=== PATIENT | female | born 1940 | race Caucasian/White ===

== ENCOUNTER → 2016-04-11 | Outpatient (CLI) | payer OTHER ==
[~2016-04-11] MED LIST: ALEVE220 MG PO; ASPIRIN81 M1 PO; CALCIUM +D; GLUCOPHAGE500 MG PO; LISINOPRIL/HCTZ1 TA2 PO; LOVASTATIN; LOVASTATIN20 MG PO; OSCAL,OYSTER S500 MG PO; VICODIN 5/500 505 MG PO; ZOLOFT50 MG PO; [UNRECOGNIZED DRUG - OTHER]
== END | disposition home or self-care (01) ==
LOC: RAD 13:15
DX: M16.0 Bilateral primary osteoarthritis of hip (principal); M25.551 Pain in right hip; M25.552 Pain in left hip

== ENCOUNTER → 2016-09-16 | Outpatient (CLI) | payer OTHER ==
[2016-09-16 11:15] LABS: ALBUMIN 3.5 gm/dl (3.1-4.5); BUN 23 mg/dl (7-24); CARBON DIOXIDE 27 mmol/L (21-32); CHLORIDE 106 mmol/L (98-107); CHOLESTEROL 172 mg/dL (<200); EST GLOM FILT AFRICAN AMERICAN > 60 ml/min; GLUCOSE 95 mg/dL (65-99); POTASSIUM 4.8 mmol/L (3.5-5.1); SGOT/AST 26 IU/L (3-35); SGPT/ALT 29 U/L (12-78); SODIUM 142 mmol/L (136-145); TRIGLYCERIDES 177 mg/dl (<150); VLDL CHOLESTEROL 35 mg/dL (6-40)
[2016-09-16 11:17] LABS: ALKALINE PHOSPHATASE 100 U/L (45-117); BILIRUBIN, TOTAL 0.3 mg/dl (0.2-1.0); CPK 70 U/L (26-192); HDL CHOLESTEROL 44 mg/dl (40-60); LDL CHOLESTEROL 93 mg/dL (9-159); TOTAL PROTEIN 7.5 gm/dL (6.4-8.2)
== END | disposition home or self-care (01) ==
LOC: LAB 10:26
PROVIDERS: Family Medicine
DX: E78.00 Pure hypercholesterolemia, unspecified (principal); I10 Essential (primary) hypertension

== ENCOUNTER → 2016-09-19 | Outpatient (CLI) | payer OTHER | END | disposition home or self-care (01) | LOC: RAD 12:13 | DX: J44.9 Chronic obstructive pulmonary disease, unspecified (principal); Z87.891 Personal history of nicotine dependence ==

== ENCOUNTER → 2016-10-22 | Outpatient (CLI) | payer OTHER ==
[~2016-10-22] MED LIST changes: +HYDROCODON-ACE1 EACH PO
--- NOTE | ~2016-10-22 | ST ---
[place], [place] EXERCISE STRESS TEST REPORT NAME: ROCIO AGUILERA UNIT #: [id number] ROOM: DOCTOR: RYANNE SALDANA MD BIRTHDATE: [birth year] DOS: 10/22/2016 Lexiscan portion of the Lexiscan Cardiolite. Baseline cardiogram, sinus rhythm with nonspecific ST-T changes, 0.4 mg of Lexiscan, duration of 10 seconds. With Lexiscan, no new EKG changes. No chest discomfort. Blood pressure and heart rate response was normal. Nuclear images will be reported separately. RYANNE SALDANA MD CM:STRESS:EXERCISE STRESS TEST REPORT [id number] RYANNE SALDANA MD
== END | disposition home or self-care (01) ==
LOC: CARD 02:11
DX: I20.1 Angina pectoris with documented spasm (principal); R53.81 Other malaise; R07.2 Precordial pain

== ENCOUNTER → 2017-01-01 | Outpatient (CLI) | payer OTHER | END | disposition home or self-care (01) | LOC: RAD 13:27 | DX: J44.9 Chronic obstructive pulmonary disease, unspecified (principal) ==

== ENCOUNTER → 2017-02-19 | Outpatient (CLI) | payer OTHER ==
[2017-02-19 09:42] LABS: HEMATOCRIT 40.4 % (37.0-47.0); HEMOGLOBIN 12.9 g/dl (12.0-16.0); MEAN CELL VOLUME 95.1 fl (81.0-99.0); MEAN CORPUSCULAR HGB 30.4 pg (27.0-31.0); MEAN CORPUSCULAR HGB CONC 31.9 g/dl (33.0-37.0); MEAN PLATELET VOLUME 11.2 fl (9.6-12.3); RED BLOOD COUNT 4.25 10*6/uL (4.10-5.10); RED CELL DISTRI WIDTH 14.5 % (0-14.5); WHITE BLOOD COUNT 8.5 10*3/uL (4.8-10.8)
[2017-02-19 10:11] LABS: ALBUMIN 3.4 gm/dl (3.1-4.5); ALKALINE PHOSPHATASE 105 U/L (45-117); BUN 18 mg/dl (7-24); CHLORIDE 109 mmol/L (98-107); CHOLESTEROL 148 mg/dL (<200); CPK 64 U/L (26-192); CREATININE 0.78 mg/dL (0.55-1.02); HDL CHOLESTEROL 37 mg/dl (40-60); LDL CHOLESTEROL 81 mg/dL (9-159); POTASSIUM 4.3 mmol/L (3.5-5.1); SGOT/AST 20 IU/L (3-35); SGPT/ALT 21 U/L (12-78); SODIUM 143 mmol/L (136-145); TRIGLYCERIDES 151 mg/dl (<150); VLDL CHOLESTEROL 30 mg/dL (6-40)
== END | disposition home or self-care (01) ==
LOC: LAB 09:28
PROVIDERS: Family Medicine
DX: E78.00 Pure hypercholesterolemia, unspecified (principal); J44.9 Chronic obstructive pulmonary disease, unspecified; I10 Essential (primary) hypertension; F41.1 Generalized anxiety disorder; E74.00 Glycogen storage disease, unspecified; E55.9 Vitamin D deficiency, unspecified

== ENCOUNTER → 2017-06-12 | Outpatient (CLI) | payer OTHER ==
[2017-06-12 12:04] LABS: HEMATOCRIT 42.8 % (37.0-47.0); HEMOGLOBIN 14.1 g/dl (12.0-16.0); MEAN CELL VOLUME 94.9 fl (81.0-99.0); MEAN CORPUSCULAR HGB 31.3 pg (27.0-31.0); MEAN CORPUSCULAR HGB CONC 32.9 g/dl (33.0-37.0); RED BLOOD COUNT 4.51 10*6/uL (4.10-5.10); RED CELL DISTRI WIDTH 14.4 % (0-14.5)
[2017-06-12 12:34] LABS: ALBUMIN 3.8 gm/dl (3.1-4.5); ALKALINE PHOSPHATASE 105 U/L (45-117); BUN 20 mg/dl (7-24); CHLORIDE 108 mmol/L (98-107); CHOLESTEROL 162 mg/dL (<200); CPK 55 U/L (26-192); CREATININE 0.81 mg/dL (0.55-1.02); HDL CHOLESTEROL 39 mg/dl (40-60); LDL CHOLESTEROL 92 mg/dL (9-159); POTASSIUM 4.5 mmol/L (3.5-5.1); SGOT/AST 22 IU/L (3-35); SGPT/ALT 24 U/L (12-78); SODIUM 142 mmol/L (136-145); TOTAL PROTEIN 7.6 gm/dL (6.4-8.2); TRIGLYCERIDES 153 mg/dl (<150); VLDL CHOLESTEROL 31 mg/dL (6-40)
== END | disposition home or self-care (01) ==
LOC: LAB 11:35
PROVIDERS: Family Medicine
DX: E78.00 Pure hypercholesterolemia, unspecified (principal); E55.9 Vitamin D deficiency, unspecified; J44.9 Chronic obstructive pulmonary disease, unspecified; I10 Essential (primary) hypertension

== ENCOUNTER → 2017-08-15 | Outpatient (CLI) | payer OTHER ==
[2017-08-15 11:48] LABS: ALBUMIN 3.7 gm/dl (3.1-4.5); ALKALINE PHOSPHATASE 95 U/L (45-117); BUN 26 mg/dl (7-24); CHLORIDE 110 mmol/L (98-107); CHOLESTEROL 149 mg/dL (<200); CPK 54 U/L (26-192); CREATININE 0.95 mg/dL (0.55-1.02); HDL CHOLESTEROL 34 mg/dl (40-60); LDL CHOLESTEROL 84 mg/dL (9-159); POTASSIUM 4.8 mmol/L (3.5-5.1); SGOT/AST 20 IU/L (3-35); SGPT/ALT 21 U/L (12-78); SODIUM 143 mmol/L (136-145); TOTAL PROTEIN 7.3 gm/dL (6.4-8.2); TRIGLYCERIDES 157 mg/dl (<150); VLDL CHOLESTEROL 31 mg/dL (6-40)
== END | disposition home or self-care (01) ==
LOC: LAB 10:40
PROVIDERS: Family Medicine
DX: E78.00 Pure hypercholesterolemia, unspecified (principal); I10 Essential (primary) hypertension; E55.9 Vitamin D deficiency, unspecified

== ENCOUNTER 2018-01-25 10:45 | Emergency (ER) | payer OTHER ==
[2018-01-25] MEDS ORDERED: VENTOLIN 02.5 MG/3 M INH (11:13)
[2018-01-25] MEDS ORDERED: LISINOPRIL40 MG PO (11:15)
[2018-01-25] MEDS ORDERED: IBUPROFEN IB200 M1 PO (11:15)
[2018-01-25] MEDS ORDERED: TOPROL XL25 MG PO (11:16)
[2018-01-25] MEDS ORDERED: VITAMIN D5000 UNIT PO (11:16)
[2018-01-25] MEDS ORDERED: POTASSIUM GLUCO99 MG PO (11:17)
[2018-01-25] MEDS ORDERED: PRESERVISION A1 EAC1 PO (11:17)
[2018-01-25 12:08] LABS: BASO # 0.1 10*3/uL (0.0-0.1); BASO % 0.5 % (0.0-1.0); EOS # 0.2 10*3/uL (0.0-0.4); EOS % 1.2 % (1.0-4.0); HEMATOCRIT 37.5 % (37.0-47.0); HEMOGLOBIN 12.7 g/dl (12.0-16.0); LYMPH # 2.4 10*3/uL (1.3-4.4); MEAN CELL VOLUME 96.9 fl (81.0-99.0); MEAN CORPUSCULAR HGB 32.8 pg (27.0-31.0); MEAN CORPUSCULAR HGB CONC 33.9 g/dl (33.0-37.0); MEAN PLATELET VOLUME 11.3 fl (9.6-12.3); MONO # 1.4 10*3/uL (0.1-1.0); MONO % 9.3 % (3.0-9.0); NEUT # 10.8 10*3/uL (2.3-7.9); NEUT % 72.8 % (47.0-73.0); PLATELET COUNT AUTOMATED 236 10*3/uL (130-400); RED BLOOD COUNT 3.87 10*6/uL (4.10-5.10); RED CELL DISTRI WIDTH 13.1 % (0-14.5); WHITE BLOOD COUNT 14.8 10*3/uL (4.8-10.8)
[2018-01-25 12:23] LABS: ALKALINE PHOSPHATASE 96 U/L (45-117); BUN 16 mg/dl (7-24); CHLORIDE 105 mmol/L (98-107); CREATININE 0.89 mg/dL (0.55-1.02); POTASSIUM 3.7 mmol/L (3.5-5.1); SGOT/AST 24 IU/L (3-35); SGPT/ALT 27 U/L (12-78); SODIUM 137 mmol/L (136-145); TOTAL PROTEIN 7.5 gm/dL (6.4-8.2)
[2018-01-25] MEDS ORDERED: AUGMENTIN 875875 MG PO (12:49)
[2018-01-25] MEDS ORDERED: PREDNISONE50 MG PO (12:49)
[2018-01-25 13:05] VITALS: BP 131/65
[2018-01-25] MEDS ORDERED: TESSALON PERLE100 M1 PO (13:11)
== END 2018-01-25 13:03 | disposition home or self-care (01) ==
LOC: ED 10:45
PROVIDERS: Nurse Practitioner Family
DX: J44.1 Chronic obstructive pulmonary disease with (acute) exacerbation (principal); Z87.891 Personal history of nicotine dependence; Z79.899 Other long term (current) drug therapy; Z79.82 Long term (current) use of aspirin

== ENCOUNTER 2018-02-24 11:06 | Inpatient (IN) | payer OTHER ==
[~2018-02-24] VITALS: Ht 152.4 cm; Wt 101.8 kg
--- NOTE | ~2018-02-24 | CON ---
[place], [place] REPORT OF CONSULTATION NAME: ROCIO AGUILERA UNIT #: [id number] ROOM: 521 DOCTOR: MARLENA DIMAS MD BIRTHDATE: [birth year] DOS: 02/27/2018 PULMONARY CONSULTATION, EVALUATION, AND MANAGEMENT CONSULTATION REQUESTED BY: Dr. Imani Magaña. REASON FOR CONSULTATION: To assess the patient for possible bronchoscopy because of nonresolving respiratory symptoms. HISTORY OF PRESENT ILLNESS: This is a 77-year-old white female patient who was admitted to the hospital under the care of Dr. Imani Magaña on 02/24/2018. The patient presented to the hospital, reported having symptoms of gradual increase of respiratory symptoms, coughing, chest congestion, and wheezing for the past 3 weeks or so. The symptoms noted worsening and not responding to the treatment. The patient has been admitted to the hospital for further medical management. The symptoms were noted significantly worsened 2-3 days prior to admission to the hospital. The patient stated that she has been noted with severe cough, which is nonresolving and unable to expectorate sputum, resulting in wheezing and shortness of breath. Denies symptoms of pain in the chest. Denies symptoms of hemoptysis. REVIEW OF SYSTEMS: CONSTITUTIONAL: Fatigue and tiredness reported. Denies symptoms of fever or chills. EYES: Denies burning, redness, or tenderness. EARS, NOSE, THROAT SYMPTOMS: Denies sore throat, hoarseness, otalgia, postnasal drainage, or epistaxis. CARDIOVASCULAR: Denies angina pain, edema, or pain of the lower extremities. GASTROINTESTINAL: Dysphagia, nausea, vomiting, diarrhea, abdominal pain, hematemesis, melena, or hematochezia. SKIN: Denies abnormal lesions or rashes. GENITOURINARY: No dysuria, suprapubic pain, or hematuria. MUSCULOSKELETAL: No acute joint pain, redness, or tenderness. CENTRAL NERVOUS SYSTEM: Denies dizziness, headache, diplopia, or syncopal episode. Remaining systems were reviewed, they were noted all negative. PAST MEDICAL HISTORY: Known with: 1. History of longstanding COPD. 2. Essential hypertension. 3. Obesity. 4. Type 2 diabetes mellitus. 5. Benign essential hypertension. SOCIAL HISTORY: The patient is a , lives at home. Denies history of alcohol use or any illicit drugs. She has 3 children. Chronic heavy tobacco use, started as a teenager, 1-1/2 pack cigarettes per day until approximately 2006. Denies any history of alcohol use or any illicit drugs. [place], [place] REPORT OF CONSULTATION NAME: ROCIO AGUILERA UNIT #: [id number] ROOM: 521 DOCTOR: SHASHI SERRANO MD,MARLENA BIRTHDATE: [birth year] FAMILY HISTORY: The patient was noted essentially noncontributory. HOME MEDICATIONS: Noted use of aspirin, vitamin D, lisinopril, hydrochlorothiazide, lovastatin, metoprolol, and potassium gluconate. ALLERGIES: The patient noted as no known drug allergies. CURRENT MEDICATIONS: Administered reviewed and noted use of hydrochlorothiazide, lisinopril, aspirin, metoprolol succinate, Solu-Medrol 30 mg q.8 hours, DuoNeb, Pulmicort Respules, Levaquin intravenously, Zithromax and others. PHYSICAL EXAMINATION: GENERAL: This is a 77-year-old white female who has been noted currently awake and alert, in no acute distress. Height of 5 feet, weight of 224 pounds, BMI 43.8. VITAL SIGNS: For the patient which are recorded shows a normal temperature, respiratory rate 20-22, heart rate 66-70, blood pressure 155/49-124/48. The pulse oxygen saturation on room air at rest was 92% saturation, on admission room air was 90%. HEENT: Bsld-xj-hjdugrco obese. Head was atraumatic. Eyes: No icterus. NECK: Supple. CARDIOVASCULAR: S1, S2 is audible. LUNGS: The patient noted to have diffuse reduction in breath sounds with expiratory wheezing without any crackles. ABDOMEN: Soft, nontender. Bowel sounds present with mild obesity. EXTREMITIES: Without edema, clubbing, or cyanosis. MUSCULOSKELETAL: No deformity. VISIBLE SKIN: No lesions or rashes. CENTRAL NERVOUS SYSTEM: Cranial nerves 2-12 intact. LABORATORY DATA: CBC on 02/24/2018, on admission WBC count 17.1, hemoglobin and hematocrit, platelet count were normal. PT/PTT on 02/24/2018 was normal. CMP on 02/24/2018, normal BUN and creatinine. The blood culture on 02/24/2018, no bacterial growth. Culture of the sputum on 02/25/2018, normal stephen as well. RADIOLOGY DATA: Reviewed. Chest x-ray that was done one view on the admission, noted with possible mass lesion, infiltration, and consolidation in the left lingula. It was also noted with finding of a granuloma of the left upper lobe. Chest x-ray was reviewed of 01/01/2018, it does not show any abnormal finding of the lingula with the chronic granuloma, two of those were noted in the left upper lobe. The CT scan of the chest was also done on 02/24/2018, which was reviewed, showed limited assessment of mediastinum; however, small lymphadenopathy was noted, most likely non-pathological. The area of consolidation, infiltration mass-like lesion noted involving the left lingula, correlating to the abnormal chest x-ray. Granuloma was noted in the left upper lobe, two of those were identified, 2 mm nodule noted in the subpleural area of the posterior subsegment of the right upper lobe. IMPRESSION: [place], [place] REPORT OF CONSULTATION NAME: ROCIO AGUILERA UNIT #: [id number] ROOM: 521 DO[facility] [birth year] 1. The patient will be currently admitted to the hospital with ongoing symptom for the past 3 weeks with acute exacerbation of chronic obstructive pulmonary disease, no response to treatment. 2. Possibility of endobronchial obstruction to be considered and excluded with current finding and possible consideration of malignant process involving the left lingula as additional assessment to be performed. 3. Nonresolving severe cough. 4. History of heavy nicotine use until 2010. 5. The patient with a jixq-vj-srfmyxbj obesity history as well. 6. History of essential hypertension was also known. 7. Granuloma of the left upper lobe. The patient has a benign process. 8. Solitary small nodule 2-3 mm in right upper lobe. PLAN OF MANAGEMENT: At this time, significance was unknown. Continue current dose of corticosteroids. Start the patient on Mucinex. The patient will definitely require endoscopy for inspection and bronchoscopy ____ malignant process ____ obstruction of the lingular subsegment and also to extract any mucous impaction in major airways. Bronchodilator to be continued. Other therapy, plan of management as well. Usual care, other supportive treatment to be continued as well. Additional treatment changes or recommendation will be done based on progression of her illness. The risk and benefits of bronchoscopy were discussed with the patient in detail for the patient. The patient was agreeable for the procedure and that will be performed on Friday morning, n.p.o., past midnight status will be achieved from Friday midnight. Other plan of therapy care as well. Supportive care, other treatment and therapies as well. Usual medical management and care as previously ordered. The finding needs to clear up with the patient's lack of obstruction and lingula, exclude malignancy with further short term future assessments. Discontinuation of the Rocephin. The patient noted to be on Levaquin, which could adequately cover the current acute pneumonia and bronchitis, which was present. The patient will be started on DVT prophylaxis with Lovenox. Thanks for allowing me to participate in the care of this patient. MARLENA DANIELLE MD CM:CONSTR:REPORT OF CONSULTATION 1336 02/28/18 0307 interface
--- NOTE | ~2018-02-24 | WRIGHTHP ---
[place], [place] PATIENT HISTORY AND PHYSICAL EXAM NAME: ROCIO AGUILERA UNIT #: [id number] ROOM: 521 DOCTOR: FRANCISCO SMITH MD BIRTHDATE: [birth year] DOS: HISTORY OF PRESENT ILLNESS: This patient is 77 years old. The patient comes in with complaints of increasing difficulty breathing for the last 3-4 days. She also has had a cough, it was mostly dry and she is unable to bring up any sputum. She denies having any chest pains or palpitations. Does not have any fever or chills. Does not have any abdominal pain, nausea, any emesis. PAST MEDICAL HISTORY: Significant for: 1. COPD with last hospitalization in 09/2011. 2. Benign hypertension. 3. Chronic obstructive pulmonary disease. 4. Morbid obesity. 5. Type 2 diabetes mellitus. MEDICATIONS: Medications that she is on are aspirin 81 mg daily, vitamin D2 5000 units daily, lisinopril 40 daily, hydrochlorothiazide 25 daily, lovastatin 20 daily, metoprolol XL 25 b.i.d., potassium gluconate 99 mg daily. SOCIAL HISTORY: Nonsmoker. Does not use any alcohol. She lives at home, alone. PHYSICAL EXAMINATION: GENERAL: She is awake and alert and oriented, in moderate respiratory distress. VITAL SIGNS: Graphic trend shows a pressure of 132/70, pulse of 76, respirations 14, afebrile. LUNGS: Diminished breath sounds, a few scattered wheezes bilaterally. HEART: Regular, tachycardic. ABDOMEN: Obese, soft. EXTREMITIES: Without any edema. ASSESSMENT AND PLAN: 1. Acute exacerbation of chronic obstructive pulmonary disease. The patient is placed on IV steroids. CT scan of the chest is showing a lingular pneumonia. The patient is placed on IV antibiotics. Sputum cultures will be sent. 2. Acute respiratory failure on admission. We will do exercise oximetry before the patient is discharged. 3. Benign hypertension. Continue home medications. 4. Primary insomnia. The patient requested a sleeping pill. Ambien was given. [place], [place] PATIENT HISTORY AND PHYSICAL EXAM NAME: ROCIO AGUILERA UNIT #: [id number] ROOM: 521 DOCTOR: FRANCISCO SMITH MD BIRTHDATE: [birth year] FRANCISCO SMITH MD CM:SHARMAINE:PATIENT HISTORY AND PHYSICAL EXAMINATION 5 7 FRANCISCO SMITH MD 02/25/18926 interface
--- NOTE | ~2018-02-24 | PR ---
[place], [place] PROGRESS NOTE NAME: ROCIO AGUILERA UNIT #: [id number] ROOM: 521 DOCTOR: FRANCISCO SMITH MD BIRTHDATE: [birth year] DOS: SUBJECTIVE: The patient is doing well without any new complaints, but it appears to be quite short of breath on any kind of activity. OBJECTIVE: VITAL SIGNS: Blood pressure is 150/66, pulse of 55, respirations 20, temperature 97.4. LUNGS: Diminished breath sounds. HEART: Regular. ABDOMEN: Obese, soft. EXTREMITIES: Without any edema. ASSESSMENT AND PLAN: 1. Acute exacerbation of chronic obstructive pulmonary disease, continued mild bronchospasm and inability to cough. She is on maximal treatment plan. 2. Lingular pneumonia. Awaiting bronchoscopy. 3. Elevated white cell count, most likely from steroid effect. 4. Benign hypertension. This could be steroid effect causing pressures to go up. She is already on lisinopril and hydrochlorothiazide, which I will continue and continue to monitoring the blood pressures. FRANCISCO SMITH MD CM:PNTRANS [id number] FRANCISCO SMITH MD 02/28/18 1449 interface
--- NOTE | ~2018-02-24 | PR ---
[place], [place] PROGRESS NOTE NAME: ROCIO AGUILERA UNIT #: [id number] ROOM: 521 DOCTOR: FRANCISCO SMITH MD BIRTHDATE: [birth year] DOS: 03/04/2018 SUBJECTIVE: The patient is not having any complaints. She feels much better. OBJECTIVE: VITAL SIGNS: Blood pressure is 142/68, pulse of 64, respirations 18, temperature 97.8. LUNGS: Clear. HEART: Regular, heart rate in the low 50s. ABDOMEN: Obese, soft. EXTREMITIES: Without any edema. LABORATORY DATA: White cell count is 13.0, most likely steroid effect. Final cultures of the bronch specimen showed no bacterial growth. ASSESSMENT AND PLAN: 1. Lingular pneumonia, status post bronchoscopy with negative cultures. No malignancy was seen. 2. Chronic obstructive pulmonary disease with acute exacerbation, improved bronchospasm. 3. The plan is to discharge the patient to home today. FRANCISCO SMITH MD CM:PNTRANS [id number] FRANCISCO SMITH MD 03/04/18 1030 interface
--- NOTE | ~2018-02-24 | PR ---
[place], [place] PROGRESS NOTE NAME: ROCIO AGUILERA UNIT #: [id number] ROOM: 521 DOCTOR: SHASHI SERRANO MD,MARLENA BIRTHDATE: [birth year] DOS: 03/01/2018 SUBJECTIVE: The patient was still noted with symptoms of cough, remains unchanged. Denies symptoms of chest pain, hemoptysis. The patient does have symptoms of shortness breath with exertion, but not reported at rest with the wheezing has been reported intermittently at times. OBJECTIVE: VITAL SIGNS: For the patient which has been recorded showed the temperature noted normal, respiratory rate 18, heart rate 58, blood pressure 142/58. Pulse oxygen saturation on room air 95% saturation. HEAD, EYES, EARS, NOSE, AND THROAT: Examination shows head was atraumatic. Eyes nonicterus. NECK: Supple. CARDIOVASCULAR SYSTEM: S1, S2 is audible. LUNGS: Noted without any wheezing or crackles. ABDOMEN: Soft, nontender. Bowel sounds present. EXTREMITIES: No edema. IMPRESSION: Acute exacerbation of chronic obstructive pulmonary disease, with lingula rule out endobronchial obstruction. Mucous impaction major airway with a cough. PLAN OF MANAGEMENT: The patient already made n.p.o. ____ bronchoscopy planned to be done tomorrow morning. In the meantime, continue current medical management. The patient with use of the bronchodilators, oxygen supplementation, high dose of Mucinex and corticosteroids. MARLENA DANIELLE MD CM:PNTRANS 1230 15 MARLENA SERRANO MD 03/01/18 1716 interface
--- NOTE | ~2018-02-24 | PR ---
[place], [place] PROGRESS NOTE NAME: ROCIO AGUILERA UNIT #: [id number] ROOM: 521 DOCTOR: SHASHI SERRANO MD,MARLENA BIRTHDATE: [birth year] DOS: 02/28/2018 SUBJECTIVE: The patient was noted similar symptoms. The patient is coughing with minimal sputum expectoration excessive coughing remains with wheezing at times. Shortness of breath occurs with exertion. The symptoms of chest pain or hemoptysis. OBJECTIVE: VITAL SIGNS: For the patient which were recorded showed normal temperature, respiratory rate 20, heart rate 55, blood pressure 150/66. The pulse oxygen saturation was recorded at room air 96% saturation. HEENT: No acute change. CARDIOVASCULAR: S1, S2 audible. LUNGS: The patient decreased breath sounds, expiratory wheezing bilaterally. ABDOMEN: Soft, nontender, bowel sounds present. EXTREMITIES: No acute edema. LABORATORY DATA: The patient's CBC this morning: WBC count 15.1, remaining CBC was normal. IMPRESSION: The patient with acute exacerbation of chronic obstructive pulmonary disease, acute bronchitis, endobronchial obstruction to be excluded. The patient with atelectasis of the left lingula partially was also noted. PLAN OF CARE: Continuation of the current plan of management high dose of Mucinex, bronchodilators and antibiotics and corticosteroids. The bronchoscopy planned for the patient to be done on Friday morning. MARLENA DANIELLE MD CM:PNTRANS [id number] MARLENA SERRANO MD 02/28/18 2356 interface
--- NOTE | ~2018-02-24 | PR ---
[place], [place] PROGRESS NOTE NAME: ROCIO AGUILERA UNIT #: [id number] ROOM: 521 DOCTOR: FRANCISCO SMITH MD BIRTHDATE: [birth year] DOS: 03/01/2018 SUBJECTIVE: The patient still has slight cough. Denies having any chest pains or palpitations. Cough is slightly better, but still unable to cough up any mucus. OBJECTIVE: VITAL SIGNS: Blood pressure is 154/58, pulse of 63, respirations 20, temperature 97.8. LUNGS: Diminished breath sounds. No wheezes, rales or rhonchi heard. HEART: Regular. ABDOMEN: Obese, soft. EXTREMITIES: Without any edema. ASSESSMENT AND PLAN: 1. Acute exacerbation of chronic obstructive pulmonary disease. Some improvement noted. 2. Lingular pneumonia. The patient is awaiting a bronchoscopy tomorrow for the noncalcified solid nodule noted in the right upper lobe. The patient will be discharged after the bronchoscopy is done and the cultures negative. FRANCISCO SMITH MD CM:PNTRANS [phone] FRANCISCO SMITH MD 03/01/18 0857 interface
--- NOTE | ~2018-02-24 | PR ---
[place], [place] PROGRESS NOTE NAME: ROCIO AGUILERA UNIT #: [id number] ROOM: 521 DOCTOR: SHASHI SERRANO MD,MARLENA BIRTHDATE: [birth year] DOS: 03/02/2018 SUBJECTIVE: The patient noted comfortable at this time, resting. She has been noted a cough that remains the same as previously. The coughing remains nonproductive. There were no symptoms of chest pain reported by the patient. Shortness of breath occurs with exertion. Wheezing has been reported intermittently. There were no symptoms of chest pain. symptoms of diplopia or headache. Denies symptoms of pain of the lower extremity edema. There were no symptoms of nausea, vomiting. The patient reviewed. They were noted all negative. The patient made n.p.o. for assessment of bronchoscopy that was planned to be done today. OBJECTIVE: VITAL SIGNS: For the patient which were recorded showed the temperature noted as normal, respiratory rate 20, heart rate 59, blood pressure 126/62. Pulse oxygen saturation recorded as 95% saturation on room air. HEENT: Examination shows head was atraumatic. Eyes nonicterus. Mild to moderate obesity. NECK: Supple. CARDIOVASCULAR: S1, S2 is audible. LUNGS: Decreased breath sounds. Scattered expiratory wheezing, no crackles. ABDOMEN: Soft, obese, nontender. Bowel sounds present. EXTREMITIES: Without any acute edema. SKIN: No lesions or rashes. CENTRAL NERVOUS SYSTEM: Cranial nerves 2-12 intact. MUSCULOSKELETAL: Without any acute deformities. IMPRESSION: 1. The patient with ongoing acute exacerbation of chronic obstructive pulmonary disease, acute tracheobronchitis, atelectasis of left lingula. This patient was also noted to rule out obstruction of the lingular subsegment. 2. Mucous impaction of the airways was suspected as well. 3. The patient with sdfu-ee-tmciwxtv obesity. PLAN OF MANAGEMENT: Proceed with the bronchoscopy at this time. Continue bronchodilators, oxygen supplementation. No changes in antibiotic noted any other cultures. Supportive care therapy, plan and treatment. Change in medication if necessary, could be done after the bronchoscopy. [place], [place] PROGRESS NOTE NAME: ROCIO AGUILERA UNIT #: [id number] ROOM: 521 DOCTOR: MARLENA DIMAS MD BIRTHDATE: [birth year] MARLENA DANIELLE MD CM:PNTRANS [phone] MARLENA SERRANO MD 03/02/18 1227 interface
--- NOTE | ~2018-02-24 | PR ---
[place], [place] PROGRESS NOTE NAME: ROCIO AGUILERA UNIT #: [id number] ROOM: 521 DOCTOR: SHASHI SERRANO MD,MARLENA BIRTHDATE: [birth year] DOS: 03/04/2018 SUBJECTIVE: The patient noted comfortable at this time, resting in the bed without any acute distress. Denies symptoms of chest pain, fever or chills, coughing continued to resolve progressively. There were no symptoms of hemoptysis. OBJECTIVE: VITAL SIGNS: For the patient, which have recorded shows normal temperature, respiratory rate of 18, heart rate 64, pulse 142-68. Pulse oxygen saturation on room air 95% saturation. HEENT: No acute change. NECK: Supple. CARDIOVASCULAR: S1, S2 audible. LUNGS: Without any wheeze or crackle at the present time. ABDOMEN: Soft, nontender. Bowel sounds present. EXTREMITIES: Without any acute edema. IMPRESSION: 1. The patient was noted stable at the present time without any acute distress at this time with resolving acute pneumonia radiologically. He has a chest x-ray reviewed and the culture was also noted no bacterial growth. 2. Chronic obesity. 3. Resolving exacerbation of chronic obstructive pulmonary disease. PLAN OF MANAGEMENT: Discharged on oral antibiotic and bronchodilators, corticosteroids per primary care attending. Outpatient followup was suggested for this patient. If she wished to do that she can schedule the appointment in the office. Other therapy, plan of management, care plan and treatment and therapies. MARLENA DANIELLE MD CM:LYNN 0837 MARLENA SERRANO MD 03/04/18 0927 interface
--- NOTE | ~2018-02-24 | PR ---
[place], [place] PROGRESS NOTE NAME: ROCIO AGUILERA UNIT #: [id number] ROOM: 521 DOCTOR: FRANCISCO SMITH MD BIRTHDATE: [birth year] DOS: 02/26/2018 SUBJECTIVE: The patient is doing much better, does not have any new complaints. She did sleep good. OBJECTIVE: VITAL SIGNS: Graphic trend shows pressure 125/68, pulse of 65, respirations 18, temperature 97.8. LUNGS: Diminished breath sounds, more air entry this morning. Few wheezes, but considerably better than yesterday. HEART: Regular. ABDOMEN: Obese. EXTREMITIES: Without any edema. LABORATORY DATA: Blood culture shows no bacterial growth. Sputum culture pending so far. ASSESSMENT AND PLAN: 1. Acute exacerbation of chronic obstructive pulmonary disease, on IV steroids with improvement in the bronchospasm. 2. Acute hypoxic respiratory failure for which she is on oxygen supplementation. 3. Lingular pneumonia seen on a CT of the chest. The patient is on IV antibiotics. Lung nodules were also noted, they are 2 mm noncalcified. This will be followed as an outpatient by her PCP. FRANCISCO SMITH MD CM:PNTRANS [id number] FRANCISCO SMITH MD 02/26/18 1530 interface
--- NOTE | ~2018-02-24 | PR ---
[place], [place] PROGRESS NOTE NAME: ROCIO AGUILERA UNIT #: [id number] ROOM: 521 DOCTOR: MARLENA DIMAS MD BIRTHDATE: [birth year] DOS: 03/03/2018 PULMONARY PROGRESS NOTE SUBJECTIVE: The patient is noted comfortable at this time, resting on the bed. The patient has reported reduction in cough significantly after bronchoscopy. The patient was continued on antibiotics. Denies symptoms of chest pain, fever or chills. Denies symptoms of nausea or vomiting. OBJECTIVE: VITAL SIGNS: Which were recorded, she has normal temperature, respiratory rate 18, heart rate of 65, blood pressure 153/73. Pulse oxygen saturation on room air is 93% saturation. HEENT: No acute change. NECK: Supple. CARDIOVASCULAR: S1, S2 is audible. LUNGS: No wheeze or crackles today. ABDOMEN: Soft, nontender. EXTREMITIES: Without any acute edema. MICROBIOLOGY: Gram stain of the bronchial washing from yesterday, many white blood cells, rare Gram-positive cocci in pairs, rare budding yeast, ____ normal stephen. Final culture results pending. IMPRESSION: 1. Atelectasis. 2. Acute pneumonia. 3. Removal of endobronchial obstruction with mucopurulent material of the left lingula. 4. Removal of the mucus impaction of major airways. 5. Resolving acute exacerbation of chronic obstructive pulmonary disease. PLAN OF MANAGEMENT: Continuation of the current plan of management at this time without any changes, except reduction of the corticosteroid further to 30 mg daily dosing. Other plan of therapy and care plan for the patient to be continued. Monitor culture results and repeat chest x-ray in the morning for the discharge planning. [place], [place] PROGRESS NOTE NAME: ROCIO AGUILERA UNIT #: [id number] ROOM: 521 DOCTOR: MARLENA DIMAS MD BIRTHDATE: [birth year] MARLENA DANIELLE MD CM:PNTRANS [id number] MARLENA SERRANO MD 03/04/18 1073 interface
--- NOTE | ~2018-02-24 | EKG ---
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
--- NOTE | ~2018-02-24 | PR ---
[place], [place] PROGRESS NOTE NAME: ROCIO AGUILERA UNIT #: [id number] ROOM: 521 DOCTOR: FRANCISCO SMITH MD BIRTHDATE: [birth year] DOS: SUBJECTIVE: The patient states that she feels better, but still is unable to cough up a lot of mucus because it is pretty dry. OBJECTIVE: VITAL SIGNS: Graphic trend shows a pressure 151/53, pulse of 66, respirations 18, temperature 98.1. LUNGS: Diminished breath sounds, few scattered wheezes. HEART: Regular. ABDOMEN: Soft. EXTREMITIES: Without any edema. LABORATORY DATA: Sputum culture final normal stephen. Blood culture shows no bacterial growth. ASSESSMENT AND PLAN: 1. Acute exacerbation of chronic obstructive pulmonary disease. The patient is improving slowly. The bronchospasm is resolving. 2. Lingular pneumonia, on IV antibiotics. We will readjust medication because the cough is still persistent, even though the sputum cultures are negative. The patient is still symptomatic, I did talk to her about possibly doing a bronchoscopy. She was unwilling. She will talk to the family and decide on it and let me know if that is the case. A consultation with Pulmonary will be obtained. FRANCISCO SMITH MD CM:PNTRANS 1 [phone] FRANCISCO SMITH MD 02/27/18 1743 interface
--- NOTE | ~2018-02-24 | PR ---
[place], [place] PROGRESS NOTE NAME: ROCIO AGUILERA UNIT #: [id number] ROOM: 521 DOCTOR: FRANCISCO SMITH MD BIRTHDATE: [birth year] DOS: 03/03/2018 SUBJECTIVE: The patient is doing well, does not have any new complaints. OBJECTIVE: VITAL SIGNS: Blood pressure is 153/74, pulse of 60, respirations 20, temperature 98.3. LUNGS: Clear. HEART: Regular. ABDOMEN: Obese, soft. EXTREMITIES: Without any edema. LABORATORY DATA: Sputum culture so far shows no bacterial growth, preliminary. ASSESSMENT AND PLAN: 1. Acute exacerbation of chronic obstructive pulmonary disease, slowly improving. 2. Acute tracheobronchitis with lingular pneumonia seen on the CT scan of the chest, again on IV antibiotics. We are waiting for cultures to come back. The plan is to discharge her to home today. Assessment for oxygen will be done today. FRANCISCO SMITH MD CM:PNTRANS [id number] FRANCISCO SMITH MD 03/03/18 0903 interface
--- NOTE | ~2018-02-24 | DS ---
[place], [place] DISCHARGE SUMMARY NAME: ROCIO AGUILERA UNIT #: [id number] ROOM: 521 DOCTOR: FRANCISCO SMITH MD BIRTHDATE: [birth year] DOS: 03/04/2018 DIAGNOSES: 1. Acute exacerbation of chronic obstructive pulmonary disease. 2. Acute hypoxic respiratory failure, which is resolved. 3. Lingular pneumonia, status post bronchoscopy with negative cultures. 4. Benign hypertension. 5. Morbid obesity. 6. Type 2 diabetes mellitus, diet controlled. DISCHARGE MEDICATIONS: She is on are the same as on admission, which includes aspirin 81 daily, vitamin D 5000 units daily, lisinopril 40 daily, hydrochlorothiazide 25 daily, lovastatin 20 daily, metoprolol XL 25 b.i.d., potassium gluconate 99 mg daily. The new prescriptions given were Ambien 5 at bedtime for 7 days, prednisone tapering dose and Ceftin 250 twice daily for 5 days. HOSPITAL COURSE: The patient is 77 years old, comes in with complaints of cough and difficulty breathing. Please refer to H and P for details. After admission, had a CT scan done, which showed lingular pneumonia. Antibiotics were started along with IV steroids for exacerbation of COPD. Oxygen was ordered for respiratory failure. With improvement in the bronchospasm and the pneumonia, the oxygenation has improved and she is no longer using the oxygen. Home O2 assessment was done and she did not qualify for it. The patient continued to have significant bronchospasm and cough and shortness of breath, so Dr. Barney was consulted for bronchoscopy. Bronch cultures have come back so far negative, but with therapeutic lavage, the patient has felt better. Cough and shortness of breath have improved. Her pressures are controlled. I held the hydrochlorothiazide during this admission, will restart upon discharge, could possibly discontinue the medicine. She is slightly on the bradycardic side because of the beta blockers which also needs to be readjusted as an outpatient. She has had primary insomnia for which a low dose of Ambien was given, few days of Ambien was given as a prescription. This morning, the patient is stable and is not having any complaints, so the plan is to discharge her to home. Slight elevation of white cell count is noted that is most likely from the steroids that she is on. The patient is to follow with Dr. Santos as an outpatient and to continue using breathing treatments q.i.d. [place], [place] DISCHARGE SUMMARY NAME: ROCIO AGUILERA UNIT #: [id number] ROOM: 521 DOCTOR: FRANCISCO SMITH MD BIRTHDATE: [birth year] FRANCISCO SMITH MD CM:DISCHTESS 0 1 FRANCISCO SMITH MD 03/04/1801 interface
--- NOTE | ~2018-02-24 | PROC NOTE ---
[place], [place] PROCEDURE NOTE NAME: ROCIO AGUILERA UNIT #: [id number] ROOM: 521 DOCTOR: SHASHI SERRANO MD,MARLENA BIRTHDATE: [birth year] DOS: 03/02/2018 PROCEDURE: Fiberoptic bronchoscopy. PREOPERATIVE DIAGNOSES: The patient with persistent nonresolving cough as well as atelectasis of the left lingula. POSTOPERATIVE DIAGNOSES: Removal of mucus impaction major airways. Complete occlusion of the lingular subsegment with very purulent secretion with some mucous mixture. Decrease of inflammatory changes noted that area with fibrin mucosa. There were no endobronchial obstructive lesions. PROCEDURE DESCRIPTION: Informed consent obtained for the patient. The patient was brought to the OR and placed in supine position. Conscious sedation administered by Anesthesia Department. After achieving proper sedation, airway introduced into the mouth. Bronchoscope was introduced into the airway into laryngeal area. Epiglottis and vocal cords were seen. Vocal cord noted yellowish in color moving symmetrically with movements. Bronchoscope advanced vocal cord and tracheal lumen. Tracheal lumen shows small amount of secretions suctioned out. Ana noted sharp. Right upper, right middle and right lower lobe bronchus noted small amount of mucus impaction cleared out. Complete occlusion of the left lingula subsegment secondary to very purulent secretion mixture with edema of the airway and friable mucosa. All the secretions suctioned out clear. Small impaction of the mucus was noted in the left upper and left lower lobe. Procedure well tolerated by the patient without any difficulty. The postoperative findings were discussed with the patient's daughter. The chest x-ray will be ordered in the next couple of days to reassess resolution of the lingular atelectasis. Acute inflammatory changes with pneumonia was suspected. There was no discrete endobronchial lesions seen. No changes at this time and the antibiotic of the medical management will be necessary except the steroid dose will be decreased to 30 mg b.i.d. dosing as wheezing showed improved with the bronchoscopy. The postoperative findings were discussed with Dr. Imani Magaña as well. MARLENA DANIELLE MD CM:PROCNOTE:PROCEDURE NOTE [id number] MARLENA SERRANO MD
--- NOTE | ~2018-02-24 | PR ---
[place], [place] PROGRESS NOTE NAME: ROCIO AGUILERA UNIT #: [id number] ROOM: 521 DOCTOR: FRANCISCO SMITH MD BIRTHDATE: [birth year] DOS: 03/02/2018 SUBJECTIVE: The patient is not having any new complaints. Denies any chest pains or palpitations. She still has a cough and continues to have difficulty bringing up the sputum. OBJECTIVE: VITAL SIGNS: Blood pressure is 126/48, pulse of 64, respirations 16, temperature 98.2. LUNGS: Diminished breath sounds, very few fine wheezes heard. HEART: Regular. ABDOMEN: Obese. EXTREMITIES: Without any edema. LABORATORY DATA: Blood cultures showed no bacterial growth. ASSESSMENT AND PLAN: 1. Acute exacerbation of chronic obstructive pulmonary disease, on maximal treatment plan. Improvement has been extremely slow. 2. Acute hypoxic respiratory failure, we will start assessment for home O2. 3. Benign hypertension, controlled. 4. Lingular pneumonia. Awaiting bronchoscopy to make sure she does not have a malignancy underneath this pneumonic process. Discussed with Dr. Barney. Bronchoscopy plan today, FRANCISCO SMITH MD CM:PNTRANS [id number] FRANCISCO SMITH MD 03/02/18 1418 interface
--- NOTE | ~2018-02-24 | EKG ---
[place], [place] ELECTROCARDIOGRAM REPORT NAME: ROCIO AGUILERA UNIT #: [id number] ROOM: 521 DOCTOR: NELSY DRAFT REPORT BIRTHDATE: [birth year] [facility] Test Date: 2018-02-27 Test Time: 10:33:34 Pat Name: ROCIO AGUILERA Department: Room: 521 1 Gender: F [employer]ologist: CHAD : 1940 Requested By: MARLENA SERRANO Order Number: [id number] Reading MD: Marlena Barney MD Measurements Intervals [place] Rate: 65 P: 41 NH: 152 QRS: 23 QRSD: 102 T: 18 QT: 435 QTc: 453 Interpretive Statements Sinus rhythm Compared to ECG 02/24/2018 11:21:09 No significant changes Electronically Signed On 03-02-2018 6:51:39 PST by Marlena Barney MD CM:EKGRPT:ELECTROCARDIOGRAM REPORT [id number] MARLENA SERRANO MD EPIPHANU DRAFT REPORT MARLENA SERRANO MD
--- NOTE | ~2018-02-24 | CON ---
[place], [place] REPORT OF CONSULTATION NAME: ROCIO AGUILERA UNIT #: [id number] ROOM: 521 DOCTOR: DIAMOND SORIANO BIRTHDATE: [birth year] DOS: 02/27/2018 PRIMARY CONSULTATION EVALUATION AND MANAGEMENT CONSULTATION REQUESTED BY: Imani Mgaaña M.D. REASON FOR CONSULTATION: Acute exacerbation of chronic obstructive pulmonary disease, bronchoscopy. HISTORY OF PRESENT ILLNESS: The patient is a 77-year-old female with a history of COPD, who presents to the hospital with increasing shortness of breath. The patient states that over the last 3-4 days, she has had increasing shortness of breath, increasing coughing with yellow sputum production as well as severe wheezing. The patient, however, denies fevers, chills, chest pain and flu-like symptoms. The patient was admitted on 02/24/2018 and has been receiving azithromycin, ceftriaxone, bronchodilators and steroids. The patient was recently discontinued from the azithromycin and switched to Levaquin. The patient notes that today she is feeling much better with decreased wheezing, shortness of breath and sputum production, still persistent cough. REVIEW OF SYSTEMS: CONSTITUTIONAL: Denies symptoms of fevers or chills. EYES: Denies any pain or redness. NOSE AND THROAT: Slight nasal congestion. Denies sore throat. CARDIOVASCULAR: Denies chest pain and has no complaints of lower extremity pain/swelling. GASTROINTESTINAL: The patient denies vomiting, diarrhea, constipation, abdominal pain, hematemesis, melena or hematochezia. GENITOURINARY: Denies dysuria or hematuria. SKIN: Denies any new lesions or rashes. CENTRAL NERVOUS SYSTEM: Has no complaints of a recent headache. Remaining systems were reviewed. The patient had no other complaints. PAST MEDICAL HISTORY: 1. Chronic obstructive pulmonary disease, chronic respiratory failure. 2. Benign hypertension. 3. Morbid obesity. 4. Type 2 diabetes mellitus. 5. Previous nicotine dependence. PAST SURGICAL HISTORY: 1. 3 C-sections. 2. Hysterectomy. SOCIAL HISTORY: Denies illicit drug use or alcohol use. The patient states she smoked for 50 years about a pack a day, but has stopped smoking for about 11 years. MEDICATIONS: Ventolin, aspirin, vitamin D3, Zestoretic, lovastatin, Toprol, potassium gluconate, PreserVision. [place], [place] REPORT OF CONSULTATION NAME: ROCIO AGUILERA UNIT #: [id number] ROOM: 521 DOCTOR: DIAMOND SORIANO BIRTHDATE: [birth year] DRUG ALLERGIES: No known drug allergies. PHYSICAL EXAMINATION: GENERAL: The patient is a 77-year-old female who is currently noted sitting comfortably at a chair at this time. The patient shows no signs of acute distress. Height 5 feet, BMI 43.8. VITAL SIGNS: Temperature normal, respiratory rate 18, heart rate 67, blood pressure 169/78, pulse oxygen saturation on room air 95% saturation. HEENT: Head is atraumatic. Eyes, nonicterus. NECK: Supple. CARDIOVASCULAR: S1, S2 audible. LUNGS: Clear throughout except for very slight wheeze at times. ABDOMEN: Soft, nontender. EXTREMITIES: Without acute edema. MUSCULOSKELETAL: Without acute deformities. SKIN: No recent lesions or rashes. LABORATORY DATA: CBC on 02/24/2018; white blood cell count 17.1, hemoglobin 12.5, platelet count 283. CMP on 02/24/2018; BUN 17, creatinine 1.01, carbon dioxide 24, glucose 99. IMAGING STUDIES: Chest x-ray 02/24/2018. IMPRESSION: 1. 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 2. Cardiac, left superior lateral border shows extra contour bulge, not clear if this represents to cardiac enlargement. 3. Chronic cardiomegaly, no pulmonary venous congestion. Followup study may be needed to see if the patient has cardiac enlargement. Chest CT on 02/24/2018 IMPRESSION: Lingular consolidation, most likely representing pneumonia. A followup chest CT scan following therapy would be helpful to ensure there is no underlying mass/lesion combined emphysema, pulmonary fibrosis, 2 mm noncalcified solid right upper lobe nodule following 2 mm noncalcified solid right upper lung nodule, only nodule noted on this CT per impression by radiologist. Final Gram stain, few epithelial cells, few gram-negative bacilli, few gram-positive cocci in pair and chains. Final sputum culture, normal stephen. IMPRESSION: 1. The patient has been currently admitted to the hospital. The patient is noted with acute hypoxic respiratory failure, result of acute exacerbation of chronic obstructive pulmonary disease. 2. A 2-mm nodule noted on CT dated 02/24/2018, followup needed. 3. History of nicotine abuse. 4. CT from 02/24/2018 suggested lingular consolidation, possibly representing pneumonia. 5. Morbid obesity. [place], [place] REPORT OF CONSULTATION NAME: ROCIO AGUILERA UNIT #: [id number] ROOM: 521 DOCTOR: DIAMOND SORIANO BIRTHDATE: [birth year] PLAN OF MANAGEMENT: Continue current plan of management from a pulmonary standpoint. At this time, continue bronchodilators, antibiotic and steroids. Bronchoscopy scheduled for Friday; however, if the patient is improving by Friday may not be needed. Further changes in management will be changed based upon the patient's change in clinical status. DIAMOND SORIANO DO MARLENA DANIELLE MD CM:CONSTR:REPORT OF CONSULTATION 1812 03/01/18 0525 interface
[~2018-02-24 11:06] MED LIST changes: +AUGMENTIN 875875 MG PO; +IBUPROFEN IB200 M1 PO; +LISINOPRIL40 MG PO; +POTASSIUM GLUCO99 MG PO; +PREDNISONE50 MG PO; +PRESERVISION A1 EAC1 PO; +TESSALON PERLE100 M1 PO; +TOPROL XL25 MG PO; +VENTOLIN 02.5 MG/3 M INH; +VITAMIN D5000 UNIT PO
[2018-02-24 11:11] VITALS: BP 160/58
[2018-02-24 11:48] LABS: BASO # 0.1 10*3/uL (0.0-0.1); BASO % 0.4 % (0.0-1.0); EOS # 0.7 10*3/uL (0.0-0.4); EOS % 3.8 % (1.0-4.0); HEMATOCRIT 38.7 % (37.0-47.0); HEMOGLOBIN 12.5 g/dl (12.0-16.0); LYMPH # 2.4 10*3/uL (1.3-4.4); LYMPH % 14.3 % (27.0-41.0); MEAN CELL VOLUME 97.7 fl (81.0-99.0); MEAN CORPUSCULAR HGB 31.6 pg (27.0-31.0); MEAN CORPUSCULAR HGB CONC 32.3 g/dl (33.0-37.0); MEAN PLATELET VOLUME 11.3 fl (9.6-12.3); MONO # 1.5 10*3/uL (0.1-1.0); MONO % 8.7 % (3.0-9.0); NEUT # 12.3 10*3/uL (2.3-7.9); NEUT % 72.2 % (47.0-73.0); PLATELET COUNT AUTOMATED 283 10*3/uL (130-400); RED BLOOD COUNT 3.96 10*6/uL (4.10-5.10); RED CELL DISTRI WIDTH 13.3 % (0-14.5); WHITE BLOOD COUNT 17.1 10*3/uL (4.8-10.8)
[2018-02-24 12:04] LABS: ALKALINE PHOSPHATASE 88 U/L (45-117); BUN 17 mg/dl (7-24); CHLORIDE 104 mmol/L (98-107); CREATININE 1.01 mg/dL (0.55-1.02); LIPASE 71 U/L (73-393); POTASSIUM 4.4 mmol/L (3.5-5.1); SGOT/AST 14 IU/L (3-35); SGPT/ALT 13 U/L (12-78); SODIUM 139 mmol/L (136-145); TOTAL PROTEIN 7.5 gm/dL (6.4-8.2)
[2018-02-24 12:08] LABS: TROPONIN I < 0.015 ng/ml (<0.045)
[2018-02-24 12:31] VITALS: BP 141/55
[2018-02-24 12:51] VITALS: BP 138/82
[2018-02-24 13:58] VITALS: BP 142/78
[2018-02-24 14:20] VITALS: BP 123/59
[2018-02-24] MEDS ORDERED: ZESTORETIC 20-1 EACH PO (15:52)
[2018-02-24 20:00] VITALS: BP 102/47
[2018-02-25] VITALS: BP 119/45
[2018-02-25 08:03] VITALS: BP 128/60
[2018-02-25 12:00] VITALS: BP 125/64
[2018-02-25 16:00] VITALS: BP 119/91
[2018-02-25 20:00] VITALS: BP 118/56
[2018-02-26] VITALS: BP 125/68
[2018-02-26 08:00] VITALS: BP 152/54
[2018-02-26 12:00] VITALS: BP 155/60
[2018-02-26 16:00] VITALS: BP 144/61
[2018-02-26 20:00] VITALS: BP 155/49
[2018-02-27] VITALS: BP 151/53
[2018-02-27 08:00] VITALS: BP 124/48
[2018-02-27 12:00] VITALS: BP 189/75
[2018-02-27 16:00] VITALS: BP 169/78
[2018-02-27 20:00] VITALS: BP 144/70
[2018-02-28] VITALS: BP 134/62
[2018-02-28 06:20] LABS: HEMATOCRIT 39.2 % (37.0-47.0); HEMOGLOBIN 12.6 g/dl (12.0-16.0); MEAN CELL VOLUME 97.8 fl (81.0-99.0); MEAN CORPUSCULAR HGB 31.4 pg (27.0-31.0); MEAN CORPUSCULAR HGB CONC 32.1 g/dl (33.0-37.0); MEAN PLATELET VOLUME 11.5 fl (9.6-12.3); PLATELET COUNT AUTOMATED 339 10*3/uL (130-400); RED BLOOD COUNT 4.01 10*6/uL (4.10-5.10); RED CELL DISTRI WIDTH 13.1 % (0-14.5); WHITE BLOOD COUNT 15.1 10*3/uL (4.8-10.8)
[2018-02-28 06:52] LABS: CREATININE 0.98 mg/dL (0.55-1.02)
[2018-02-28 07:04] LABS: ATYPICAL LYMPHS 1 % (0-0); PLATELET SUFFICIENCY NORMAL (NORMAL); TOTAL CELLS COUNTED 100 #CELLS
[2018-02-28 08:00] VITALS: BP 150/66
[2018-02-28 12:00] VITALS: BP 164/97
[2018-02-28 16:00] VITALS: BP 137/69
[2018-03-01] VITALS: BP 154/58
[2018-03-01 08:00] VITALS: BP 142/58
[2018-03-01 12:00] VITALS: BP 127/55
[2018-03-01 16:00] VITALS: BP 123/54
[2018-03-01 20:00] VITALS: BP 134/45
[2018-03-02] VITALS (10 sets, daily range): BP systolic 109–175; BP diastolic 48–77
[2018-03-03] VITALS: BP 128/49
[2018-03-03 08:00] VITALS: BP 153/73
[2018-03-03 12:00] VITALS: BP 144/58
[2018-03-03 16:00] VITALS: BP 127/48
[2018-03-03 16:14] LABS: ACID FAST SPEC PROCESSING Concentration (.)
[2018-03-03 20:00] VITALS: BP 132/45
[2018-03-04] VITALS: BP 150/53
[2018-03-04 06:28] LABS: HEMATOCRIT 42.4 % (37.0-47.0); HEMOGLOBIN 13.2 g/dl (12.0-16.0); MEAN CELL VOLUME 99.5 fl (81.0-99.0); MEAN CORPUSCULAR HGB CONC 31.1 g/dl (33.0-37.0); MEAN PLATELET VOLUME 11.2 fl (9.6-12.3); PLATELET COUNT AUTOMATED 253 10*3/uL (130-400); RED BLOOD COUNT 4.26 10*6/uL (4.10-5.10); RED CELL DISTRI WIDTH 13.4 % (0-14.5)
[2018-03-04 06:29] LABS: CREATININE 1.38 mg/dL (0.55-1.02)
[2018-03-04 07:02] LABS: PLATELET SUFFICIENCY NORMAL (NORMAL); TOTAL CELLS COUNTED 100 #CELLS
[2018-03-04 08:00] VITALS: BP 142/68
[2018-03-04] MEDS ORDERED: PREDNISONE5 MG PO (08:32)
[2018-03-04] MEDS ORDERED: CEFUROXIME AXE250 MG PO (08:32)
[2018-03-04 12:00] VITALS: BP 138/64
== END 2018-03-04 14:45 | disposition home or self-care (01) | DRG 871 ==
LOC: ED 11:06 → 5E 12:40 → EDHOLD 12:40 → 5E 12:59
PROVIDERS: Emergency Medicine; Internal Medicine; Internal Medicine Critical Care Medicine
PROC: 0BC88ZZ Extirpation of Matter from Left Upper Lobe Bronchus, Via Natural or Artificial Opening Endoscopic (ICD-10-PCS; principal; 2018-03-02)
PROC: 0BC98ZZ Extirpation of Matter from Lingula Bronchus, Via Natural or Artificial Opening Endoscopic (ICD-10-PCS; principal; 2018-03-02)
PROC: 0BC48ZZ Extirpation of Matter from Right Upper Lobe Bronchus, Via Natural or Artificial Opening Endoscopic (ICD-10-PCS; principal; 2018-03-02)
PROC: 0BC78ZZ Extirpation of Matter from Left Main Bronchus, Via Natural or Artificial Opening Endoscopic (ICD-10-PCS; principal; 2018-03-02)
PROC: 0BCB8ZZ Extirpation of Matter from Left Lower Lobe Bronchus, Via Natural or Artificial Opening Endoscopic (ICD-10-PCS; principal; 2018-03-02)
PROC: 0BC58ZZ Extirpation of Matter from Right Middle Lobe Bronchus, Via Natural or Artificial Opening Endoscopic (ICD-10-PCS; principal; 2018-03-02)
PROC: 0BC68ZZ Extirpation of Matter from Right Lower Lobe Bronchus, Via Natural or Artificial Opening Endoscopic (ICD-10-PCS; principal; 2018-03-02)
PROC: 0BC18ZZ Extirpation of Matter from Trachea, Via Natural or Artificial Opening Endoscopic (ICD-10-PCS; principal; 2018-03-02)
PROC: 0BC38ZZ Extirpation of Matter from Right Main Bronchus, Via Natural or Artificial Opening Endoscopic (ICD-10-PCS; principal; 2018-03-02)
DX: A41.9 Sepsis, unspecified organism (principal); J18.9 Pneumonia, unspecified organism; J96.01 Acute respiratory failure with hypoxia; J44.1 Chronic obstructive pulmonary disease with (acute) exacerbation; J44.0 Chronic obstructive pulmonary disease with (acute) lower respiratory infection; T17.590A Other foreign object in bronchus causing asphyxiation, initial encounter; Z68.41 Body mass index [BMI] 40.0-44.9, adult; E11.9 Type 2 diabetes mellitus without complications; E66.01 Morbid (severe) obesity due to excess calories; Z66 Do not resuscitate; Z51.5 Encounter for palliative care; F17.210 Nicotine dependence, cigarettes, uncomplicated; I10 Essential (primary) hypertension; R65.20 Severe sepsis without septic shock; F51.01 Primary insomnia; J20.9 Acute bronchitis, unspecified; X58.XXXA Exposure to other specified factors, initial encounter; J84.10 Pulmonary fibrosis, unspecified; R91.1 Solitary pulmonary nodule; Z83.3 Family history of diabetes mellitus; Z80.9 Family history of malignant neoplasm, unspecified; Z90.710 Acquired absence of both cervix and uterus; Y93.89 Activity, other specified; Y92.89 Other specified places as the place of occurrence of the external cause; Y99.8 Other external cause status; Z79.899 Other long term (current) drug therapy

== ENCOUNTER → 2018-03-26 | Outpatient (CLI) | payer OTHER ==
[~2018-03-26] MED LIST changes: +CEFUROXIME AXE250 MG PO; +PREDNISONE5 MG PO; +ZESTORETIC 20-1 EACH PO
[2018-03-26 09:53] LABS: ALBUMIN 3.3 gm/dl (3.1-4.5); ALKALINE PHOSPHATASE 58 U/L (45-117); BUN 33 mg/dl (7-24); CHLORIDE 111 mmol/L (98-107); CREATININE 0.95 mg/dL (0.55-1.02); SGOT/AST 18 IU/L (3-35); SGPT/ALT 25 U/L (12-78); SODIUM 144 mmol/L (136-145); TOTAL PROTEIN 6.8 gm/dL (6.4-8.2)
[2018-03-26 09:58] LABS: HEMATOCRIT 38.4 % (37.0-47.0); HEMOGLOBIN 12.7 g/dl (12.0-16.0); MEAN CELL VOLUME 98.7 fl (81.0-99.0); MEAN CORPUSCULAR HGB 32.6 pg (27.0-31.0); MEAN CORPUSCULAR HGB CONC 33.1 g/dl (33.0-37.0); MEAN PLATELET VOLUME 11.5 fl (9.6-12.3); RED BLOOD COUNT 3.89 10*6/uL (4.10-5.10); RED CELL DISTRI WIDTH 14.5 % (0-14.5); WHITE BLOOD COUNT 8.1 10*3/uL (4.8-10.8)
[2018-03-26 11:05] LABS: VITAMIN D, 25-HYDROXY 38.4 ng/mL (30-100)
== END | disposition home or self-care (01) ==
PROVIDERS: Family Medicine
DX: J43.9 Emphysema, unspecified (principal); I10 Essential (primary) hypertension; I25.10 Atherosclerotic heart disease of native coronary artery without angina pectoris; E55.9 Vitamin D deficiency, unspecified; D51.9 Vitamin B12 deficiency anemia, unspecified; J18.9 Pneumonia, unspecified organism; R06.02 Shortness of breath; R53.83 Other fatigue; Z87.891 Personal history of nicotine dependence

== ENCOUNTER → 2018-06-17 | Outpatient (CLI) | payer OTHER | END | disposition home or self-care (01) | LOC: RAD 13:45 | DX: M51.37 Other intervertebral disc degeneration, lumbosacral region (principal); M48.07 Spinal stenosis, lumbosacral region ==

== ENCOUNTER → 2018-06-27 | Outpatient (CLI) | payer OTHER ==
[2018-06-27 09:47] LABS: HEMATOCRIT 40.5 % (37.0-47.0); HEMOGLOBIN 12.9 g/dl (12.0-16.0); MEAN CELL VOLUME 98.1 fl (81.0-99.0); MEAN CORPUSCULAR HGB 31.2 pg (27.0-31.0); MEAN CORPUSCULAR HGB CONC 31.9 g/dl (33.0-37.0); MEAN PLATELET VOLUME 11.4 fl (9.6-12.3); RED BLOOD COUNT 4.13 10*6/uL (4.10-5.10); RED CELL DISTRI WIDTH 13.1 % (0-14.5); WHITE BLOOD COUNT 7.7 10*3/uL (4.8-10.8)
[2018-06-27 10:11] LABS: ALBUMIN 3.7 gm/dl (3.1-4.5); BUN 28 mg/dl (7-24); CHLORIDE 110 mmol/L (98-107); CHOLESTEROL 219 mg/dL (<200); CREATININE 0.99 mg/dL (0.55-1.02); POTASSIUM 4.9 mmol/L (3.5-5.1); SGOT/AST 23 IU/L (3-35); SGPT/ALT 28 U/L (12-78); SODIUM 142 mmol/L (136-145); TOTAL PROTEIN 7.1 gm/dL (6.4-8.2); TRIGLYCERIDES 185 mg/dl (<150); VLDL CHOLESTEROL 37 mg/dL (6-40)
[2018-06-27 10:12] LABS: ALKALINE PHOSPHATASE 79 U/L (45-117); CPK 75 U/L (26-192); HDL CHOLESTEROL 38 mg/dl (40-60); LDL CHOLESTEROL 144 mg/dL (9-159)
== END | disposition home or self-care (01) ==
LOC: LAB 09:14
PROVIDERS: Family Medicine
DX: E78.00 Pure hypercholesterolemia, unspecified (principal); I10 Essential (primary) hypertension; E55.9 Vitamin D deficiency, unspecified; M19.90 Unspecified osteoarthritis, unspecified site; Z79.899 Other long term (current) drug therapy

== ENCOUNTER → 2018-07-24 | Outpatient (CLI) | payer OTHER | END | disposition home or self-care (01) | LOC: MRI 08:39 | DX: M47.816 Spondylosis without myelopathy or radiculopathy, lumbar region (principal); M54.31 Sciatica, right side; R53.1 Weakness; R20.2 Paresthesia of skin ==

== ENCOUNTER → 2019-01-13 | Outpatient (CLI) | payer OTHER ==
[2019-01-13 10:37] LABS: HEMATOCRIT 35.6 % (37.0-47.0); HEMOGLOBIN 11.2 g/dl (12.0-16.0); MEAN CELL VOLUME 93.4 fl (81.0-99.0); MEAN CORPUSCULAR HGB 29.4 pg (27.0-31.0); MEAN CORPUSCULAR HGB CONC 31.5 g/dl (33.0-37.0); MEAN PLATELET VOLUME 11.6 fl (9.6-12.3); RED BLOOD COUNT 3.81 10*6/uL (4.10-5.10); RED CELL DISTRI WIDTH 14.3 % (0-14.5); WHITE BLOOD COUNT 9.9 10*3/uL (4.8-10.8)
[2019-01-13 11:12] LABS: ALBUMIN 3.4 gm/dl (3.1-4.5); CREATININE 1.09 mg/dL (0.55-1.02); POTASSIUM 4.4 mmol/L (3.5-5.1)
== END | disposition home or self-care (01) ==
LOC: LAB 09:53
PROVIDERS: Family Medicine
DX: E78.00 Pure hypercholesterolemia, unspecified (principal); E11.9 Type 2 diabetes mellitus without complications; E55.9 Vitamin D deficiency, unspecified; I10 Essential (primary) hypertension

== ENCOUNTER → 2019-04-16 | Outpatient (CLI) | payer OTHER ==
[2019-04-16 10:57] LABS: HEMATOCRIT 36.3 % (37.0-47.0); HEMOGLOBIN 11.4 g/dl (12.0-16.0); MEAN CELL VOLUME 94.3 fl (81.0-99.0); MEAN CORPUSCULAR HGB 29.6 pg (27.0-31.0); MEAN CORPUSCULAR HGB CONC 31.4 g/dl (33.0-37.0); MEAN PLATELET VOLUME 11.6 fl (9.6-12.3); RED BLOOD COUNT 3.85 10*6/uL (4.10-5.10); RED CELL DISTRI WIDTH 14.7 % (0-14.5)
[2019-04-16 11:33] LABS: ALBUMIN 3.4 gm/dl (3.1-4.5); ALKALINE PHOSPHATASE 103 U/L (45-117); BUN 16 mg/dl (7-24); CHLORIDE 111 mmol/L (98-107); CHOLESTEROL 199 mg/dL (<200); CREATININE 1.02 mg/dL (0.55-1.02); HDL CHOLESTEROL 39 mg/dl (40-60); LDL CHOLESTEROL 125 mg/dL (9-159); POTASSIUM 4.8 mmol/L (3.5-5.1); SGOT/AST 11 IU/L (3-35); SGPT/ALT 19 U/L (12-78); SODIUM 143 mmol/L (136-145); TRIGLYCERIDES 173 mg/dl (<150); VLDL CHOLESTEROL 35 mg/dL (6-40)
== END | disposition home or self-care (01) ==
LOC: LAB 10:25
PROVIDERS: Family Medicine
DX: I10 Essential (primary) hypertension (principal); R73.03 Prediabetes

== ENCOUNTER → 2019-09-16 | Outpatient (CLI) | payer OTHER | END | disposition home or self-care (01) | LOC: RAD 09:57 | DX: R06.02 Shortness of breath (principal) ==

== ENCOUNTER 2019-10-25 11:30 | Inpatient (IN) | payer OTHER ==
[~2019-10-25] VITALS: Ht 152.4 cm; Wt 102.6 kg
[~2019-10-25 11:30] MED LIST changes: +OCUVITE EYE +1 EACH PO; +POTASSIUM CHLO20 ME3 PO; -POTASSIUM GLUCO99 MG PO; -PRESERVISION A1 EAC1 PO
[2019-10-25 11:35] VITALS: BP 93/75
[2019-10-25 12:15] VITALS: BP 98/50
[2019-10-25 12:20] LABS: BASO # 0.1 10*3/uL (0.0-0.1); BASO % 0.5 % (0.0-1.0); EOS # 0.6 10*3/uL (0.0-0.4); EOS % 5.2 % (1.0-4.0); HEMATOCRIT 37.7 % (37.0-47.0); LYMPH # 2.2 10*3/uL (1.3-4.4); LYMPH % 19.3 % (27.0-41.0); MEAN CELL VOLUME 94.7 fl (81.0-99.0); MEAN CORPUSCULAR HGB 27.6 pg (27.0-31.0); MEAN CORPUSCULAR HGB CONC 29.2 g/dl (33.0-37.0); MEAN PLATELET VOLUME 12.5 fl (9.6-12.3); MONO # 0.9 10*3/uL (0.1-1.0); MONO % 7.8 % (3.0-9.0); NEUT # 7.7 10*3/uL (2.3-7.9); NEUT % 66.7 % (47.0-73.0); PLATELET COUNT AUTOMATED 205 10*3/uL (130-400); RED BLOOD COUNT 3.98 10*6/uL (4.10-5.10); RED CELL DISTRI WIDTH 16.6 % (0-14.5); WHITE BLOOD COUNT 11.6 10*3/uL (4.8-10.8)
[2019-10-25 12:33] LABS: ACT PARTIAL THROMBO TIME 24.4 SECONDS (20.0-32.1)
[2019-10-25 12:35] LABS: ALBUMIN 3.3 gm/dl (3.1-4.5); CREATININE 1.47 mg/dL (0.55-1.02); POTASSIUM 5.6 mmol/L (3.5-5.1); TOTAL PROTEIN 6.5 gm/dL (6.4-8.2); TROPONIN I 0.029 ng/ml (<0.045)
[2019-10-25 13:20] VITALS: BP 84/62
[2019-10-25 14:14] LABS: BILIRUBIN NEGATIVE (NEGATIVE); CLARITY CLEAR (CLEAR); COLOR YELLOW (YELLOW); GLUCOSE NEGATIVE (NEGATIVE); KETONE NEGATIVE (NEGATIVE)
[2019-10-25 14:18] LABS: BLOOD NEGATIVE (NEGATIVE); LEUKO ESTERASE 2+ (NEGATIVE); NITRITE NEGATIVE (NEGATIVE); SPECIFIC GRAVITY 1.025 (1.005-1.030); UROBILINOGEN 0.2 E.U./dl (0.2-1.0)
[2019-10-25 14:20] LABS: BACTERIA 2+
[2019-10-25 14:28] VITALS: BP 92/52
[2019-10-25 16:00] VITALS: BP 145/41
[2019-10-25] MEDS ORDERED: LOSARTAN POTASS50 M1 PO (16:01)
[2019-10-25] MEDS ORDERED: STOOL SOFTENER100 M3 PO (16:01)
[2019-10-25] MEDS ORDERED: HYDROXYZINE HCL25 MG PO (16:31)
[2019-10-25 17:18] LABS: ARTERIAL BLOOD GAS PH 7.384 (7.35-7.45)
[2019-10-25 17:19] LABS: ABG BASE EXCESS -9.1 mmol/L (-2.0-2.0)
[2019-10-25 20:00] VITALS: BP 113/39
[2019-10-26 00:15] VITALS: BP 116/48
[2019-10-26 04:20] VITALS: BP 106/42
[2019-10-26 05:19] LABS: CREATININE 1.28 mg/dL (0.55-1.02); POTASSIUM 5.2 mmol/L (3.5-5.1)
[2019-10-26 08:00] VITALS: BP 110/70
[2019-10-26 12:00] VITALS: BP 153/58
[2019-10-26 16:00] VITALS: BP 165/49
[2019-10-26 20:00] VITALS: BP 160/68
[2019-10-27] VITALS: BP 97/45
[2019-10-27 04:00] VITALS: BP 126/45
[2019-10-27 05:59] LABS: CHLORIDE 110 mmol/L (98-107); CREATININE 1.04 mg/dL (0.55-1.02); POTASSIUM 4.3 mmol/L (3.5-5.1); SODIUM 138 mmol/L (136-145)
[2019-10-27 06:11] LABS: BUN 26 mg/dl (7-24)
[2019-10-27 08:00] VITALS: BP 148/58
[2019-10-27 12:00] VITALS: BP 152/65
[2019-10-27 16:00] VITALS: BP 167/56
[2019-10-27 20:00] VITALS: BP 137/55
[2019-10-28] VITALS: BP 148/58
[2019-10-28 04:50] LABS: CREATININE 1.19 mg/dL (0.55-1.02); POTASSIUM 4.3 mmol/L (3.5-5.1)
[2019-10-28 08:00] VITALS: BP 140/62
[2019-10-28] MEDS ORDERED: XARE15TA PO (10:02)
[2019-10-28] MEDS ORDERED: SYMB160 INH (10:02)
[2019-10-28 12:00] VITALS: BP 136/60
== END 2019-10-28 12:36 | disposition home or self-care (01) | DRG 291 ==
LOC: ED 11:30 → EDHOLD 14:30 → ICCU 14:30
PROVIDERS: Emergency Medicine; Internal Medicine Critical Care Medicine; ADMIT Internal Medicine
DX: I13.0 Hypertensive heart and chronic kidney disease with heart failure and stage 1 through stage 4 chronic kidney disease, or unspecified chronic kidney disease (principal); N17.0 Acute kidney failure with tubular necrosis; I50.33 Acute on chronic diastolic (congestive) heart failure; Z68.41 Body mass index [BMI] 40.0-44.9, adult; J96.10 Chronic respiratory failure, unspecified whether with hypoxia or hypercapnia; J43.2 Centrilobular emphysema; E66.01 Morbid (severe) obesity due to excess calories; I48.91 Unspecified atrial fibrillation; R00.1 Bradycardia, unspecified; I95.9 Hypotension, unspecified; N18.9 Chronic kidney disease, unspecified; E11.22 Type 2 diabetes mellitus with diabetic chronic kidney disease; E78.2 Mixed hyperlipidemia; M19.90 Unspecified osteoarthritis, unspecified site; Z87.891 Personal history of nicotine dependence; Z90.710 Acquired absence of both cervix and uterus; Z83.3 Family history of diabetes mellitus; Z80.9 Family history of malignant neoplasm, unspecified; Z79.01 Long term (current) use of anticoagulants; Z79.899 Other long term (current) drug therapy

== ENCOUNTER → 2020-03-07 | Outpatient (CLI) | payer OTHER ==
[~2020-03-07] MED LIST changes: +HYDROXYZINE HCL25 MG PO; +LOSARTAN POTASS50 M1 PO; +STOOL SOFTENER100 M3 PO; +SYMB160 INH; +XARE15TA PO
[2020-03-07 10:44] LABS: HEMATOCRIT 37.9 % (37.0-47.0); MEAN CELL VOLUME 91.3 fl (81.0-99.0); MEAN CORPUSCULAR HGB 29.2 pg (27.0-31.0); MEAN CORPUSCULAR HGB CONC 31.9 g/dl (33.0-37.0); MEAN PLATELET VOLUME 11.3 fl (9.6-12.3); RED BLOOD COUNT 4.15 10*6/uL (4.10-5.10); RED CELL DISTRI WIDTH 14.4 % (0-14.5); WHITE BLOOD COUNT 6.3 10*3/uL (4.8-10.8)
[2020-03-07 11:21] LABS: ALBUMIN 3.4 gm/dl (3.1-4.5); ALKALINE PHOSPHATASE 103 U/L (45-117); BUN 18 mg/dl (7-24); CHLORIDE 110 mmol/L (98-107); CHOLESTEROL 167 mg/dL (<200); CREATININE 0.89 mg/dL (0.55-1.02); HDL CHOLESTEROL 44 mg/dl (40-60); LDL CHOLESTEROL 94 mg/dL (9-159); POTASSIUM 4.5 mmol/L (3.5-5.1); SGOT/AST 23 IU/L (3-35); SGPT/ALT 24 U/L (12-78); SODIUM 140 mmol/L (136-145); TOTAL PROTEIN 7.1 gm/dL (6.4-8.2); TRIGLYCERIDES 147 mg/dl (<150); VLDL CHOLESTEROL 29 mg/dL (6-40)
[2020-03-07 11:59] LABS: VITAMIN D, 25-HYDROXY 53.1 ng/mL (30-100)
== END | disposition home or self-care (01) ==
LOC: LAB 10:07
PROVIDERS: ATTEND Family Medicine
DX: I10 Essential (primary) hypertension (principal); E55.9 Vitamin D deficiency, unspecified; E78.00 Pure hypercholesterolemia, unspecified; E74.9 Disorder of carbohydrate metabolism, unspecified; M10.9 Gout, unspecified

== ENCOUNTER → 2020-06-05 | Outpatient (CLI) | payer OTHER ==
[2020-06-05 11:09] LABS: ALBUMIN 3.4 gm/dl (3.1-4.5); ALKALINE PHOSPHATASE 99 U/L (45-117); BUN 21 mg/dl (7-24); CHLORIDE 111 mmol/L (98-107); CHOLESTEROL 163 mg/dL (<200); CPK 85 U/L (26-192); CREATININE 1.01 mg/dL (0.55-1.02); HDL CHOLESTEROL 48 mg/dl (40-60); LDL CHOLESTEROL 78 mg/dL (9-159); POTASSIUM 5.1 mmol/L (3.5-5.1); SGOT/AST 42 IU/L (3-35); SGPT/ALT 37 U/L (12-78); SODIUM 142 mmol/L (136-145); TOTAL PROTEIN 7.4 gm/dL (6.4-8.2); TRIGLYCERIDES 184 mg/dl (<150); VLDL CHOLESTEROL 37 mg/dL (6-40)
== END | disposition home or self-care (01) ==
LOC: LAB 10:18
PROVIDERS: ATTEND Family Medicine
DX: E78.00 Pure hypercholesterolemia, unspecified (principal)

== ENCOUNTER → 2020-09-21 | Outpatient (CLI) | payer OTHER ==
[2020-09-21 11:24] LABS: ALBUMIN 3.5 gm/dl (3.1-4.5); ALKALINE PHOSPHATASE 90 U/L (45-117); BUN 17 mg/dl (7-24); CHLORIDE 114 mmol/L (98-107); CHOLESTEROL 149 mg/dL (<200); CREATININE 0.97 mg/dL (0.55-1.02); LDL CHOLESTEROL 79 mg/dL (9-159); POTASSIUM 4.8 mmol/L (3.5-5.1); SGOT/AST 61 IU/L (3-35); SGPT/ALT 55 U/L (12-78); SODIUM 138 mmol/L (136-145); TOTAL PROTEIN 7.2 gm/dL (6.4-8.2); TRIGLYCERIDES 136 mg/dl (<150)
[2020-09-21 11:43] LABS: CPK 107 U/L (26-192)
== END | disposition home or self-care (01) ==
LOC: LAB 10:38
PROVIDERS: ATTEND Family Medicine
DX: I10 Essential (primary) hypertension (principal); E78.00 Pure hypercholesterolemia, unspecified; E74.9 Disorder of carbohydrate metabolism, unspecified; Z79.899 Other long term (current) drug therapy

== ENCOUNTER → 2020-10-23 | Outpatient (CLI) | payer OTHER | END | disposition home or self-care (01) | LOC: MAMMO 10:46 | PROVIDERS: ATTEND Family Medicine | DX: Z12.31 Encounter for screening mammogram for malignant neoplasm of breast (principal) ==

== ENCOUNTER → 2021-01-04 | Outpatient (CLI) | payer OTHER ==
[2021-01-04 09:43] LABS: HEMATOCRIT 40.8 % (37.0-47.0); MEAN CELL VOLUME 99.5 fl (81.0-99.0); MEAN CORPUSCULAR HGB 32.2 pg (27.0-31.0); MEAN CORPUSCULAR HGB CONC 32.4 g/dl (33.0-37.0); MEAN PLATELET VOLUME 11.4 fl (9.6-12.3); RED BLOOD COUNT 4.1 10*6/uL (4.10-5.10); RED CELL DISTRI WIDTH 14.3 % (0-14.5); WHITE BLOOD COUNT 8.8 10*3/uL (4.8-10.8)
[2021-01-04 10:06] LABS: ALBUMIN 3.3 gm/dl (3.1-4.5); ALKALINE PHOSPHATASE 99 U/L (45-117); BUN 21 mg/dl (7-24); CHLORIDE 113 mmol/L (98-107); CHOLESTEROL 157 mg/dL (<200); CPK 42 U/L (26-192); CREATININE 0.99 mg/dL (0.55-1.02); LDL CHOLESTEROL 87 mg/dL (9-159); POTASSIUM 5.2 mmol/L (3.5-5.1); SGOT/AST 27 IU/L (3-35); SGPT/ALT 28 U/L (12-78); SODIUM 142 mmol/L (136-145); TOTAL PROTEIN 6.9 gm/dL (6.4-8.2); TRIGLYCERIDES 148 mg/dl (<150)
== END | disposition home or self-care (01) ==
LOC: LAB 09:10
PROVIDERS: ATTEND Family Medicine
DX: E78.00 Pure hypercholesterolemia, unspecified (principal); I10 Essential (primary) hypertension

== ENCOUNTER → 2021-05-22 | Outpatient (CLI) | payer OTHER ==
[2021-05-22 09:41] LABS: HEMATOCRIT 40.6 % (37.0-47.0); MEAN CELL VOLUME 96.2 fl (81.0-99.0); MEAN CORPUSCULAR HGB 32.2 pg (27.0-31.0); MEAN CORPUSCULAR HGB CONC 33.5 g/dl (33.0-37.0); MEAN PLATELET VOLUME 10.9 fl (9.6-12.3); RED BLOOD COUNT 4.22 10*6/uL (4.10-5.10); RED CELL DISTRI WIDTH 13.5 % (0-14.5); WHITE BLOOD COUNT 7.1 10*3/uL (4.8-10.8)
[2021-05-22 10:00] LABS: ALKALINE PHOSPHATASE 92 U/L (45-117); BUN 21 mg/dl (7-24); CHLORIDE 113 mmol/L (98-107); CHOLESTEROL 152 mg/dL (<200); CREATININE 0.84 mg/dL (0.55-1.02); LDL CHOLESTEROL 85 mg/dL (9-159); POTASSIUM 4.3 mmol/L (3.5-5.1); SGOT/AST 17 IU/L (3-35); SGPT/ALT 22 U/L (12-78); SODIUM 143 mmol/L (136-145); TOTAL PROTEIN 6.8 gm/dL (6.4-8.2); TRIGLYCERIDES 125 mg/dl (<150)
[2021-05-22 10:46] LABS: VITAMIN D, 25-HYDROXY 48.3 ng/mL (30-100)
== END | disposition home or self-care (01) ==
LOC: LAB 09:10
PROVIDERS: ATTEND Family Medicine
DX: I10 Essential (primary) hypertension (principal); R53.83 Other fatigue; M17.0 Bilateral primary osteoarthritis of knee; G47.33 Obstructive sleep apnea (adult) (pediatric); E55.9 Vitamin D deficiency, unspecified; E78.2 Mixed hyperlipidemia

== ENCOUNTER → 2021-08-24 | Outpatient (CLI) | payer OTHER ==
[2021-08-24 10:45] LABS: HEMATOCRIT 42.4 % (37.0-47.0); MEAN CELL VOLUME 96.1 fl (81.0-99.0); MEAN CORPUSCULAR HGB 31.7 pg (27.0-31.0); MEAN PLATELET VOLUME 11.1 fl (9.6-12.3); RED BLOOD COUNT 4.41 10*6/uL (4.10-5.10); RED CELL DISTRI WIDTH 13.2 % (0-14.5); WHITE BLOOD COUNT 7.2 10*3/uL (4.8-10.8)
[2021-08-24 11:20] LABS: BUN 21 mg/dl (7-24); CHLORIDE 115 mmol/L (98-107); CHOLESTEROL 161 mg/dL (<200); CREATININE 0.91 mg/dL (0.55-1.02); LDL CHOLESTEROL 81 mg/dL (9-159); POTASSIUM 5.2 mmol/L (3.5-5.1); SGOT/AST 33 IU/L (3-35); SGPT/ALT 23 U/L (12-78); SODIUM 141 mmol/L (136-145); TOTAL PROTEIN 7.1 gm/dL (6.4-8.2); TRIGLYCERIDES 183 mg/dl (<150)
[2021-08-24 11:25] LABS: ALKALINE PHOSPHATASE 83 U/L (45-117)
== END | disposition home or self-care (01) ==
LOC: LAB 10:16 → EDSTATUS 10:53 → LAB 10:54
PROVIDERS: ATTEND Family Medicine
DX: I10 Essential (primary) hypertension (principal); E74.9 Disorder of carbohydrate metabolism, unspecified; E78.00 Pure hypercholesterolemia, unspecified; Z79.899 Other long term (current) drug therapy

== ENCOUNTER → 2021-10-02 | Outpatient (CLI) | payer OTHER | END | disposition home or self-care (01) | LOC: RAD 09:45 | PROVIDERS: ATTEND Family Medicine | DX: J84.10 Pulmonary fibrosis, unspecified (principal); J43.9 Emphysema, unspecified ==

== ENCOUNTER → 2021-11-29 | Outpatient (CLI) | payer OTHER ==
[2021-11-29 09:34] LABS: HEMATOCRIT 43.2 % (37.0-47.0); MEAN CELL VOLUME 99.3 fl (81.0-99.0); MEAN CORPUSCULAR HGB 32.4 pg (27.0-31.0); MEAN CORPUSCULAR HGB CONC 32.6 g/dl (33.0-37.0); MEAN PLATELET VOLUME 10.6 fl (9.6-12.3); RED BLOOD COUNT 4.35 10*6/uL (4.10-5.10); RED CELL DISTRI WIDTH 13.4 % (0-14.5); WHITE BLOOD COUNT 7.3 10*3/uL (4.8-10.8)
[2021-11-29 09:52] LABS: ALKALINE PHOSPHATASE 78 U/L (45-117); BUN 24 mg/dl (7-24); CHLORIDE 114 mmol/L (98-107); CHOLESTEROL 159 mg/dL (<200); CPK 42 U/L (26-192); CREATININE 1.06 mg/dL (0.55-1.02); LDL CHOLESTEROL 85 mg/dL (9-159); POTASSIUM 5.3 mmol/L (3.5-5.1); SGOT/AST 16 IU/L (3-35); SGPT/ALT 19 U/L (12-78); SODIUM 142 mmol/L (136-145); TRIGLYCERIDES 176 mg/dl (<150)
== END | disposition home or self-care (01) ==
LOC: LAB 09:13
PROVIDERS: ATTEND Family Medicine
DX: E78.00 Pure hypercholesterolemia, unspecified (principal); E74.9 Disorder of carbohydrate metabolism, unspecified; Z79.899 Other long term (current) drug therapy

== ENCOUNTER → 2022-03-20 | Outpatient (CLI) | payer OTHER ==
[2022-03-20 10:04] LABS: HEMATOCRIT 43.1 % (37.0-47.0); MEAN CELL VOLUME 97.3 fl (81.0-99.0); MEAN CORPUSCULAR HGB 32.5 pg (27.0-31.0); MEAN CORPUSCULAR HGB CONC 33.4 g/dl (33.0-37.0); MEAN PLATELET VOLUME 11.3 fl (9.6-12.3); RED BLOOD COUNT 4.43 10*6/uL (4.10-5.10); RED CELL DISTRI WIDTH 12.8 % (0-14.5)
[2022-03-20 10:22] LABS: ALKALINE PHOSPHATASE 84 U/L (46-116); BUN 20 mg/dl (9-23); CHLORIDE 106 mmol/L (98-107); CHOLESTEROL 149 mg/dL (<200); CREATININE 0.94 mg/dL (0.55-1.02); LDL CHOLESTEROL 78 mg/dL (9-159); POTASSIUM 4.1 mmol/L (3.4-5.1); SGPT/ALT 10 U/L (10-49); TOTAL PROTEIN 6.9 gm/dL (6.0-8.0); TRIGLYCERIDES 168 mg/dl (<150)
== END | disposition home or self-care (01) ==
LOC: LAB 09:44
PROVIDERS: ATTEND Family Medicine
DX: I10 Essential (primary) hypertension (principal); E78.00 Pure hypercholesterolemia, unspecified; E87.6 Hypokalemia

== ENCOUNTER → 2022-06-11 | Outpatient (CLI) | payer OTHER ==
[2022-06-11 09:45] LABS: HEMATOCRIT 41.9 % (37.0-47.0); MEAN CELL VOLUME 99.5 fl (81.0-99.0); MEAN CORPUSCULAR HGB 33.3 pg (27.0-31.0); MEAN CORPUSCULAR HGB CONC 33.4 g/dl (33.0-37.0); MEAN PLATELET VOLUME 10.7 fl (9.6-12.3); RED BLOOD COUNT 4.21 10*6/uL (4.10-5.10); RED CELL DISTRI WIDTH 13.2 % (0-14.5); WHITE BLOOD COUNT 7.9 10*3/uL (4.8-10.8)
[2022-06-11 10:22] LABS: ALKALINE PHOSPHATASE 81 U/L (46-116); BUN 20 mg/dl (9-23); CHLORIDE 110 mmol/L (98-107); CHOLESTEROL 141 mg/dL (<200); CPK 51 U/L (34-171); LDL CHOLESTEROL 73 mg/dL (9-159); POTASSIUM 4.4 mmol/L (3.4-5.1); SGPT/ALT 10 U/L (10-49); TOTAL PROTEIN 6.7 gm/dL (6.0-8.0); TRIGLYCERIDES 123 mg/dl (<150)
== END | disposition home or self-care (01) ==
LOC: LAB 09:28
PROVIDERS: ATTEND Family Medicine
DX: E78.00 Pure hypercholesterolemia, unspecified (principal); E74.9 Disorder of carbohydrate metabolism, unspecified; I10 Essential (primary) hypertension

== ENCOUNTER → 2022-07-31 | Outpatient (CLI) | payer OTHER | END | disposition home or self-care (01) | LOC: RAD 10:49 | PROVIDERS: ATTEND Family Medicine | DX: M16.0 Bilateral primary osteoarthritis of hip (principal); J44.9 Chronic obstructive pulmonary disease, unspecified; R06.02 Shortness of breath; M25.551 Pain in right hip; M25.552 Pain in left hip ==

== ENCOUNTER → 2022-09-20 | Outpatient (CLI) | payer OTHER ==
[2022-09-20 09:56] LABS: HEMATOCRIT 41.3 % (37.0-47.0); MEAN CELL VOLUME 96.7 fl (81.0-99.0); MEAN CORPUSCULAR HGB 33.3 pg (27.0-31.0); MEAN CORPUSCULAR HGB CONC 34.4 g/dl (33.0-37.0); MEAN PLATELET VOLUME 10.9 fl (9.6-12.3); RED BLOOD COUNT 4.27 10*6/uL (4.10-5.10); RED CELL DISTRI WIDTH 12.9 % (0-14.5); WHITE BLOOD COUNT 7.1 10*3/uL (4.8-10.8)
[2022-09-20 10:32] LABS: ALKALINE PHOSPHATASE 94 U/L (46-116); BUN 21 mg/dl (9-23); CHLORIDE 108 mmol/L (98-107); CHOLESTEROL 146 mg/dL (<200); LDL CHOLESTEROL 82 mg/dL (9-159); POTASSIUM 4.2 mmol/L (3.4-5.1); SGPT/ALT 10 U/L (10-49); TOTAL PROTEIN 6.7 gm/dL (6.0-8.0); TRIGLYCERIDES 137 mg/dl (<150)
== END | disposition home or self-care (01) ==
LOC: LAB 09:22
PROVIDERS: ATTEND Family Medicine
DX: I10 Essential (primary) hypertension (principal); E74.9 Disorder of carbohydrate metabolism, unspecified; E78.00 Pure hypercholesterolemia, unspecified

== ENCOUNTER → 2022-12-27 | Outpatient (CLI) | payer OTHER ==
[2022-12-27 09:20] LABS: HEMATOCRIT 43.7 % (37.0-47.0); MEAN CELL VOLUME 99.5 fl (81.0-99.0); MEAN CORPUSCULAR HGB 32.8 pg (27.0-31.0); MEAN PLATELET VOLUME 11.1 fl (9.6-12.3); RED BLOOD COUNT 4.39 10*6/uL (4.10-5.10); RED CELL DISTRI WIDTH 12.8 % (0-14.5); WHITE BLOOD COUNT 9.5 10*3/uL (4.8-10.8)
[2022-12-27 09:45] LABS: ALKALINE PHOSPHATASE 85 U/L (46-116); BUN 20 mg/dl (9-23); CHLORIDE 107 mmol/L (98-107); CHOLESTEROL 163 mg/dL (<200); LDL CHOLESTEROL 88 mg/dL (9-159); POTASSIUM 5.1 mmol/L (3.4-5.1); SGPT/ALT 11 U/L (10-49); TOTAL PROTEIN 7.2 gm/dL (6.0-8.0); TRIGLYCERIDES 173 mg/dl (<150)
== END | disposition home or self-care (01) ==
LOC: LAB 08:44
PROVIDERS: ATTEND Family Medicine
DX: I10 Essential (primary) hypertension (principal); E74.9 Disorder of carbohydrate metabolism, unspecified; Z79.899 Other long term (current) drug therapy

== ENCOUNTER → 2023-03-06 | Outpatient (CLI) | payer OTHER | END | disposition home or self-care (01) | LOC: MAMMO 00:15 | PROVIDERS: ATTEND Family Medicine | DX: Z12.31 Encounter for screening mammogram for malignant neoplasm of breast (principal) ==

== ENCOUNTER → 2023-03-26 | Outpatient (CLI) | payer OTHER ==
[2023-03-26 09:36] LABS: MEAN CELL VOLUME 100.9 fl (81.0-99.0); MEAN CORPUSCULAR HGB 32.3 pg (27.0-31.0); MEAN PLATELET VOLUME 11.3 fl (9.6-12.3); RED BLOOD COUNT 4.46 10*6/uL (4.10-5.10); RED CELL DISTRI WIDTH 12.8 % (0-14.5)
[2023-03-26 10:01] LABS: ALKALINE PHOSPHATASE 86 U/L (46-116); BUN 17 mg/dl (9-23); CHLORIDE 107 mmol/L (98-107); CHOLESTEROL 147 mg/dL (<200); CPK 53 U/L (34-171); LDL CHOLESTEROL 78 mg/dL (9-159); SGPT/ALT 12 U/L (5-49); TOTAL PROTEIN 7.1 gm/dL (6.0-8.0); TRIGLYCERIDES 154 mg/dl (<150)
== END | disposition home or self-care (01) ==
LOC: LAB 09:05
PROVIDERS: ATTEND Family Medicine
DX: I10 Essential (primary) hypertension (principal); E11.9 Type 2 diabetes mellitus without complications; E78.00 Pure hypercholesterolemia, unspecified

== ENCOUNTER → 2023-06-25 | Outpatient (CLI) | payer OTHER ==
[2023-06-25 09:48] LABS: HEMATOCRIT 42.7 % (37.0-47.0); MEAN CELL VOLUME 100.7 fl (81.0-99.0); MEAN CORPUSCULAR HGB 32.3 pg (27.0-31.0); MEAN CORPUSCULAR HGB CONC 32.1 g/dl (33.0-37.0); MEAN PLATELET VOLUME 10.9 fl (9.6-12.3); RED BLOOD COUNT 4.24 10*6/uL (4.10-5.10); RED CELL DISTRI WIDTH 13.3 % (0-14.5); WHITE BLOOD COUNT 7.4 10*3/uL (4.8-10.8)
[2023-06-25 10:54] LABS: ALKALINE PHOSPHATASE 86 U/L (46-116); BUN 22 mg/dl (9-23); CHLORIDE 109 mmol/L (98-107); CHOLESTEROL 142 mg/dL (<200); CPK 51 U/L (34-171); LDL CHOLESTEROL 70 mg/dL (9-159); POTASSIUM 4.6 mmol/L (3.4-5.1); SGPT/ALT 8 U/L (5-49); TOTAL PROTEIN 6.9 gm/dL (6.0-8.0); TRIGLYCERIDES 153 mg/dl (<150)
== END | disposition home or self-care (01) ==
LOC: LAB 09:27
PROVIDERS: ATTEND Family Medicine
DX: I10 Essential (primary) hypertension (principal); E78.00 Pure hypercholesterolemia, unspecified; E74.9 Disorder of carbohydrate metabolism, unspecified

== ENCOUNTER → 2023-07-28 | Outpatient (CLI) | payer OTHER | END | disposition home or self-care (01) | LOC: RAD 11:48 | PROVIDERS: ATTEND Family Medicine | DX: M79.89 Other specified soft tissue disorders (principal) ==

== ENCOUNTER → 2023-09-24 | Outpatient (CLI) | payer OTHER ==
[2023-09-24 08:48] LABS: HEMATOCRIT 39.2 % (37.0-47.0); MEAN CELL VOLUME 99.2 fl (81.0-99.0); MEAN CORPUSCULAR HGB 32.9 pg (27.0-31.0); MEAN CORPUSCULAR HGB CONC 33.2 g/dl (33.0-37.0); MEAN PLATELET VOLUME 10.8 fl (9.6-12.3); RED BLOOD COUNT 3.95 10*6/uL (4.10-5.10); RED CELL DISTRI WIDTH 13.2 % (0-14.5); WHITE BLOOD COUNT 9.1 10*3/uL (4.8-10.8)
[2023-09-24 09:10] LABS: ALKALINE PHOSPHATASE 85 U/L (46-116); BUN 13 mg/dl (9-23); CHLORIDE 109 mmol/L (98-107); CHOLESTEROL 146 mg/dL (<200); CPK 43 U/L (34-171); LDL CHOLESTEROL 87 mg/dL (9-159); POTASSIUM 4.1 mmol/L (3.4-5.1); SGPT/ALT 7 U/L (5-49); TOTAL PROTEIN 6.6 gm/dL (6.0-8.0); TRIGLYCERIDES 118 mg/dl (<150)
== END | disposition home or self-care (01) ==
LOC: LAB 08:31
PROVIDERS: ATTEND Family Medicine
DX: I10 Essential (primary) hypertension (principal); E78.00 Pure hypercholesterolemia, unspecified; E74.9 Disorder of carbohydrate metabolism, unspecified

== ENCOUNTER → 2024-01-26 | Outpatient (CLI) | payer OTHER ==
[2024-01-26 09:11] LABS: HEMATOCRIT 44.7 % (37.0-47.0); MEAN CELL VOLUME 100.9 fl (81.0-99.0); MEAN CORPUSCULAR HGB 32.7 pg (27.0-31.0); MEAN CORPUSCULAR HGB CONC 32.4 g/dl (33.0-37.0); MEAN PLATELET VOLUME 11.3 fl (9.6-12.3); RED BLOOD COUNT 4.43 10*6/uL (4.10-5.10); RED CELL DISTRI WIDTH 12.9 % (0-14.5); WHITE BLOOD COUNT 9.3 10*3/uL (4.8-10.8)
[2024-01-26 10:30] LABS: POTASSIUM 5.2 mmol/L (3.4-5.1); TOTAL PROTEIN 7.3 gm/dL (6.0-8.0)
== END | disposition home or self-care (01) ==
LOC: LAB 08:36
PROVIDERS: ATTEND Family Medicine
DX: I10 Essential (primary) hypertension (principal); E78.00 Pure hypercholesterolemia, unspecified; J44.9 Chronic obstructive pulmonary disease, unspecified

== ENCOUNTER → 2024-05-12 | Outpatient (CLI) | payer OTHER ==
[2024-05-12 10:55] LABS: HEMATOCRIT 48.1 % (37.0-47.0); MEAN CORPUSCULAR HGB 32.3 pg (27.0-31.0); MEAN CORPUSCULAR HGB CONC 31.4 g/dl (33.0-37.0); MEAN PLATELET VOLUME 11.4 fl (9.6-12.3); RED BLOOD COUNT 4.67 10*6/uL (4.10-5.10); RED CELL DISTRI WIDTH 12.9 % (0-14.5); WHITE BLOOD COUNT 7.1 10*3/uL (4.8-10.8)
[2024-05-12 11:45] LABS: ALKALINE PHOSPHATASE 91 U/L (46-116); BUN 17 mg/dl (9-23); CHLORIDE 110 mmol/L (98-107); CHOLESTEROL 185 mg/dL (<200); CPK 47 U/L (34-171); LDL CHOLESTEROL 107 mg/dL (9-159); POTASSIUM 4.8 mmol/L (3.4-5.1); SGPT/ALT 9 U/L (5-49); TRIGLYCERIDES 168 mg/dl (<150)
== END | disposition home or self-care (01) ==
LOC: LAB 10:25
PROVIDERS: ATTEND Family Medicine
DX: I10 Essential (primary) hypertension (principal); E78.00 Pure hypercholesterolemia, unspecified; E74.9 Disorder of carbohydrate metabolism, unspecified; Z79.899 Other long term (current) drug therapy

== ENCOUNTER → 2024-08-12 | Outpatient (CLI) | payer OTHER ==
[2024-08-12 11:24] LABS: HEMATOCRIT 40.3 % (37.0-47.0); MEAN CORPUSCULAR HGB 33.2 pg (27.0-31.0); MEAN CORPUSCULAR HGB CONC 33.5 g/dl (33.0-37.0); MEAN PLATELET VOLUME 11.7 fl (9.6-12.3); RED BLOOD COUNT 4.07 10*6/uL (4.10-5.10); RED CELL DISTRI WIDTH 13.2 % (0-14.5); WHITE BLOOD COUNT 7.7 10*3/uL (4.8-10.8)
[2024-08-12 11:49] LABS: ALKALINE PHOSPHATASE 81 U/L (46-116); BUN 25 mg/dl (9-23); CHLORIDE 109 mmol/L (98-107); CHOLESTEROL 157 mg/dL (<200); CPK 40 U/L (34-171); LDL CHOLESTEROL 85 mg/dL (9-159); POTASSIUM 4.9 mmol/L (3.4-5.1); SGPT/ALT 10 U/L (5-49); TOTAL PROTEIN 6.6 gm/dL (6.0-8.0); TRIGLYCERIDES 151 mg/dl (<150)
[2024-08-12 12:11] LABS: VITAMIN D, 25-HYDROXY 66.9 ng/mL (30-100)
== END | disposition home or self-care (01) ==
LOC: LAB 10:41
PROVIDERS: ATTEND Family Medicine
DX: I10 Essential (primary) hypertension (principal); E78.00 Pure hypercholesterolemia, unspecified; E55.9 Vitamin D deficiency, unspecified; E74.9 Disorder of carbohydrate metabolism, unspecified; Z79.899 Other long term (current) drug therapy

== ENCOUNTER → 2024-08-31 | Outpatient (CLI) | payer OTHER | END | disposition home or self-care (01) | LOC: US 08:10 | PROVIDERS: ATTEND Family Medicine | DX: I70.213 Atherosclerosis of native arteries of extremities with intermittent claudication, bilateral legs (principal) ==

== ENCOUNTER → 2024-11-23 | Outpatient (CLI) | payer OTHER ==
[2024-11-23 08:45] LABS: MEAN CELL VOLUME 102.5 fl (81.0-99.0); MEAN CORPUSCULAR HGB 33.3 pg (27.0-31.0); MEAN PLATELET VOLUME 11.2 fl (9.6-12.3); NUCLEATED RED BLOOD CELL 0.0 % (0.0-0.0); NUCLEATED RED BLOOD CELL 0.0 10*3/uL (0.0-0.0); PLATELET COUNT AUTOMATED 192.0 10*3/uL (130-400); RED CELL DISTRI WIDTH 12.5 % (0-14.5)
== END | disposition home or self-care (01) ==
LOC: LAB 08:28
PROVIDERS: ATTEND Family Medicine
DX: D64.9 Anemia, unspecified (principal); R53.83 Other fatigue; E53.8 Deficiency of other specified B group vitamins